=== PATIENT | female | born 1970 | race Caucasian/White ===

== ENCOUNTER → 2020-12-07 10:40 | Outpatient (BNVA) | payer OTHER, SELFPAY | PROVIDERS: Visit Provider Nurse Practitioner | DX: K21.9 Gastro-esophageal reflux disease without esophagitis (principal); K58.2 Mixed irritable bowel syndrome; R14.0 Abdominal distension (gaseous) | CPT/HCPCS: Q3014 ==

== ENCOUNTER → 2021-04-12 09:55 | Outpatient (BNVA) | payer OTHER, SELFPAY | DX: N39.41 Urge incontinence (principal); K58.2 Mixed irritable bowel syndrome; K21.9 Gastro-esophageal reflux disease without esophagitis | CPT/HCPCS: 51798; 99212 ==

== ENCOUNTER 2021-04-29 09:32 | Outpatient (REF) | payer OTHER, SELFPAY ==
--- NOTE | ~2021-04-29 | US_ITS ---
EXAMINATION: US RETROPERITONEAL LIMITED (RENAL ONLY) CLINICAL INFORMATION: Verge incontinence. COMPARISON: Previous renal ultrasound most recent October [address] of the abdomen and pelvis most recent April 2019 TECHNIQUE: Doppler color and grayscale evaluation of the kidneys and left renal artery. FINDINGS: RIGHT KIDNEY: Right kidney appears atrophic. Previously identified right hydronephrosis is no longer seen. Right kidney appears decreased in size compared to previous exams. Renal Doppler evaluation on the right was not performed. LEFT KIDNEY: 10.9 x 6.1 x 5.4 cm (SAG x AP x TRV). The kidney is normal in size, contour, and echogenicity. Renal cortical thickness is normal. There is a 10 x 12 x 7 mm cyst in the midpole. No calculi. No hydronephrosis. The visualized mid abdominal aorta is normal in caliber. Velocity is 77 cm/s. Left renal artery is patent. Left renal artery peak systolic velocities measure 163 cm/s proximally, 160 cm/s the midportion and 132 cm/s distally. The left renal artery to aorta ratio is normal measuring 2.1. Resistive indices in the segmental renal arteries in the left kidney are normal measuring 0.6-0.7. Left renal vein is patent. Gallstone is noted. US/US renal BI IMPRESSION: Atrophic-appearing right kidney. Small left renal cyst otherwise normal left kidney. No evidence of left renal artery stenosis.
--- NOTE | ~2021-04-29 | US_ITS ---
EXAMINATION: US RETROPERITONEAL LIMITED (RENAL ONLY) CLINICAL INFORMATION: Verge incontinence. COMPARISON: Previous renal ultrasound most recent October [address] of the abdomen and pelvis most recent April 2019 TECHNIQUE: Doppler color and grayscale evaluation of the kidneys and left renal artery. FINDINGS: RIGHT KIDNEY: Right kidney appears atrophic. Previously identified right hydronephrosis is no longer seen. Right kidney appears decreased in size compared to previous exams. Renal Doppler evaluation on the right was not performed. LEFT KIDNEY: 10.9 x 6.1 x 5.4 cm (SAG x AP x TRV). The kidney is normal in size, contour, and echogenicity. Renal cortical thickness is normal. There is a 10 x 12 x 7 mm cyst in the midpole. No calculi. No hydronephrosis. The visualized mid abdominal aorta is normal in caliber. Velocity is 77 cm/s. Left renal artery is patent. Left renal artery peak systolic velocities measure 163 cm/s proximally, 160 cm/s the midportion and 132 cm/s distally. The left renal artery to aorta ratio is normal measuring 2.1. Resistive indices in the segmental renal arteries in the left kidney are normal measuring 0.6-0.7. Left renal vein is patent. Gallstone is noted. US/US renal doppler IMPRESSION: Atrophic-appearing right kidney. Small left renal cyst otherwise normal left kidney. No evidence of left renal artery stenosis.
== END 2021-04-29 09:33 | disposition home or self-care (01) ==
LOC: HO.US 09:32
PROVIDERS: Visit Provider Urology
DX: N13.4 Hydroureter (principal); N39.41 Urge incontinence
CPT/HCPCS: 76775; 93975

== ENCOUNTER → 2021-05-07 15:11 | Outpatient (BNVA) | payer OTHER, SELFPAY | PROVIDERS: PCP Nurse Practitioner Family; Visit Provider Nurse Practitioner | DX: K58.2 Mixed irritable bowel syndrome (principal); K21.9 Gastro-esophageal reflux disease without esophagitis; R14.0 Abdominal distension (gaseous) | CPT/HCPCS: Q3014 ==

== ENCOUNTER → 2021-11-30 09:28 | Outpatient (BNVA) | payer OTHER, SELFPAY | PROVIDERS: PCP Nurse Practitioner Family | DX: Z13.89 Encounter for screening for other disorder (principal) | CPT/HCPCS: Q3014 ==

== ENCOUNTER 2022-02-11 10:19 | Outpatient (REF) | payer OTHER, SELFPAY ==
[2022-02-11 11:35] LABS: MANUAL DIFF FLAG NO
[2022-02-11 12:11] LABS: Basophils Percent Auto 0.6 % (0-2); Eosinophils Percent Auto 0.6 % (0-4); Hematocrit 43.1 % (37.0-47.0); Hemoglobin 13.9 g/dl (12.0-16.0); Imm Gran Abs Auto 0.03 X10*3/uL (0.00-0.03); Imm Gran Pct Auto 0.4 % (0.0-0.4); Lymphocytes Absolute Auto 1.9 X10*3/uL (1.2-4.9); Lymphocytes Percent Auto 28.3 % (20-40); Mean Corpuscular HGB Conc 32.3 g/dl (31.0-35.0); Mean Corpuscular Hemoglobin 27.7 pg (27.0-33.0); Mean Platelet Volume 13.1 fL (9.4-12.3); Monocytes Absolute Auto 0.5 X10*3/uL (0.1-1.2); Monocytes Percent Auto 7.2 % (2-11); Neutrophils Absolute Auto 4.2 x10*3/uL (2.0-8.3); Neutrophils Percent Auto 62.9 % (45-73); Platelet Count 232 X10*3/uL (160-400); Red Blood Count 5.01 X10*6/uL (4.20-5.50); Red Cell Distribution Width 15.5 % (11.0-16.0); White Blood Count 6.7 X10*3/uL (4.8-10.8)
[2022-02-11 12:41] LABS: Alanine Aminotransferase 17 U/L (0-31); Alkaline Phosphatase 98 U/L (39-117); Anion Gap 15 (12-20); Aspartate Amino Transferase 14 U/L (5-31); Bilirubin Total 0.4 mg/dL (0.0-1.0); Blood Urea Nitrogen 7 mg/dL (9-16); Calcium 9.4 mg/dL (8.4-10.2); Carbon Dioxide 21 mmol/L (22-29); Chloride 111 mmol/L (96-108); Estimated Glomerular Filt Rate 46; Glucose Random 88 mg/dL (60-115); Potassium 3.8 mmol/L (3.3-5.1); Sodium 143 mmol/L (135-145); Total Protein 6.6 g/dL (6.5-8.0)
== END 2022-02-11 10:20 | disposition home or self-care (01) ==
LOC: HO.LAB 10:19
PROVIDERS: PCP Nurse Practitioner Family; Referring Provider Nurse Practitioner Family; Visit Provider Nurse Practitioner
DX: Z01.818 Encounter for other preprocedural examination (principal); K58.2 Mixed irritable bowel syndrome; K21.9 Gastro-esophageal reflux disease without esophagitis; R14.0 Abdominal distension (gaseous)
CPT/HCPCS: 36415; 80053; 85025; 99212

== ENCOUNTER 2022-10-28 10:09 | Outpatient (REF) | payer OTHER, SELFPAY | END 2022-10-28 10:10 | disposition home or self-care (01) | LOC: HO.HMGCX 10:09 | PROVIDERS: PCP Nurse Practitioner Family | DX: N13.4 Hydroureter (principal) | CPT/HCPCS: 76775 ==

== ENCOUNTER → 2022-12-06 10:48 | Outpatient (BNVA) | payer OTHER, SELFPAY | PROVIDERS: PCP Nurse Practitioner Family; Visit Provider Nurse Practitioner Family | DX: N30.10 Interstitial cystitis (chronic) without hematuria (principal); N13.4 Hydroureter; R39.15 Urgency of urination | CPT/HCPCS: 51798; 99212 ==

== ENCOUNTER 2023-02-10 08:08 | Day surgery (SDC) | payer OTHER, SELFPAY ==
[2023-02-10 08:21] VITALS: BP 133/88; PULSE 82; RESP 18; TEMP 36.7; O2SAT 99; BMI 41.9
[2023-02-10] MEDS: Lactated Ringers 1,000 ML 50 ML IVCONT (08:56)
--- NOTE | 2023-02-10 09:21 | P.CONAN_ITS ---
[facility] Active Problems Active Problems: All Active Problems (Updated 02/07/23 @ 10:32 by Renee Bates, RN) Abdominal bloating (Acute) Urge incontinence of urine (Acute) GERD (gastroesophageal reflux disease) (Acute) Irritable bowel syndrome with both constipation and diarrhea (Acute) Hydroureter (Acute) Colon cancer screening (Acute) Urinary urgency (Acute) Recurrent urinary tract infection (Acute) Interstitial cystitis (Acute) Past Medical History Medical History (Updated 02/07/23 @ 10:32 by Renee Bates RN) Anxiety and depression GERD (gastroesophageal reflux disease) Hx of degenerative disc disease IBS (irritable bowel syndrome) Interstitial cystitis Migraine GASTON on CPAP PTSD (post-traumatic stress disorder) Recurrent urinary tract infection Urgency incontinence UTI (urinary tract infection) Family History Family History Mother High cholesterol Sister High cholesterol Paternal Aunt Diabetes Paternal Grandmother Bone cancer Paternal Grandfather Cancer Family/Other FH: juvenile onset diabetes mellitus Family history of problems with anesthesia: No Surgical History Surgical History (Updated 02/07/23 @ 10:33 by Renee Bates RN) History of cystoscopy History of esophagogastroduodenoscopy (EGD) History of surgery Hx of colonoscopy History of Problems with Anesthesia: No Social History Social History Alcohol intake: current Alcohol intake frequency: does not drink Patient Tobacco Use Status: Never used Tobacco Use of substances other than those prescribed or required for medical reasons: No Are you DNR?: No Advance Directives: No Advance Directives Information Provided: Yes Meds Allergies Allergy/AdvReac Type Severity Reaction Status Date / Time aspirin [ASPIRIN] Allergy Intermediate VOMITING Verified 02/07/23 10:15 Penicillins [PENICILLINS] AdvReac Intermediate SHAKINESS Verified 02/07/23 10:15 lactose [LACTOSE] AdvReac Unknown SEVERE Verified 02/07/23 10:15 DIARRHEA From KEFLEX AdvReac Intermediate SHAKINESS Uncoded 02/07/23 10:15 Active Medications: Current Medications Lactated Ringer's (Lr) 1,000 mls @ 50 mls/hr IVCONT .Q20H LILY Last Admin: 02/10/23 08:56 Dose: 50 mls/hr Home Medications Medication Instructions Recorded Confirmed Last Taken Type azelastine 137 mcg (0.1 %) nasal intranasal 05/07/21 12/06/22 Unknown History spray aerosol bupropion HCl 200 mg tablet,12 hr 200 mg PO BID 05/07/21 02/07/23 02/10/23 History sustained-release cetirizine 10 mg tablet 10 mg PO DAILY 05/07/21 02/07/23 Unknown History cholecalciferol (vitamin D3) 25 25 mcg PO DAILY 05/07/21 02/07/23 Unknown History mcg (1,000 unit) tablet duloxetine 60 mg capsule,delayed mg PO 05/07/21 12/06/22 02/10/23 History release ferrous sulfate 325 mg (65 mg 0 mg PO 05/07/21 12/06/22 02/03/23 History iron) tablet losartan 25 mg tablet 25 mg PO DAILY 05/07/21 02/07/23 02/10/23 History montelukast 10 mg tablet 10 mg PO DAILY 05/07/21 02/07/23 Unknown History pregabalin 75 mg capsule 75 mg PO BID 05/07/21 02/07/23 Unknown History zonisamide 50 mg capsule 0 mg PO 05/07/21 12/06/22 Unknown History diphenhydramine HCl 25 mg tablet 25 mg PO BEDTIME 11/30/21 02/07/23 Unknown History (Banophen) medroxyprogesterone 150 mg/mL mg IM 11/30/21 12/06/22 Unknown History intramuscular suspension triamcinolone acetonide 55 mcg intranasal 11/30/21 12/06/22 Unknown History nasal spray aerosol (Nasacort) Exam Exam Date and Time: February 10, 2023920 Height,Weight and Vital Signs: Height 5 ft 6 in Weight 117.934 kg Last Vital Signs Temp 98.1 F 02/10/23 08:21 Pulse 82 02/10/23 08:21 Resp 18 02/10/23 08:21 BP 133/88 02/10/23 08:21 Pulse Ox 99 02/10/23 08:21 O2 Del Method Room Air 02/10/23 08:21 Airway Mallampati Class: II (edentulous) TM Dist: >3cm Neck ROM: Full Heart: rrr Lungs: cta Assessment and Plan Assessment Anesthesia Assessment: Anesthesia Plan Discussed and Chart Reviewed Final Anesthetic Review Family History of Problems with Anesthesia: No History of Problems with Anesthesia: No NPO: Yes ASA Class: III Final Preanesthetic Review: No Changes in Pt Med Stat, Meds/Allgs Chart Reviewed and Consent Obtained/Reviewed Patient Risk: Intermediate Procedure Risk: Intermediate Anesthetic Plan Anesthetic Plan: MAC: Disposition: Standard PACU
--- NOTE | 2023-02-10 09:42 | P.HPSUR_ITS ---
Pre-Procedural Eval Section A Date of Service: 02/10/23 The patient is an INPATIENT: No The History & Physical has been completed within 30 days and I have reviewed it.: No Section B Chief Complaint: screening Details of Present Illness: Colon cancer screening Relevant Family History (Specify if Yes): No Relevant Social History: None Present Medications: see Short Stay [facility] assessment Medical History: Significant History (GERD (gastroesophageal reflux disease) Interstitial cystitis Urgency incontinence UTI (urinary tract infection)) History of Previous Operations: Relevant previous surgery/procedure and date(s) (History of esophagogastroduodenoscopy (EGD) History of surgery Hx of colonoscopy) Allergies: Allergies Allergy/AdvReac Type Severity Reaction Status Date / Time aspirin [ASPIRIN] Allergy Intermediate VOMITING Verified 02/07/23 10:15 Penicillins [PENICILLINS] AdvReac Intermediate SHAKINESS Verified 02/07/23 10:15 lactose [LACTOSE] AdvReac Unknown SEVERE Verified 02/07/23 10:15 DIARRHEA From KEFLEX AdvReac Intermediate SHAKINESS Uncoded 02/07/23 10:15 Review of Systems Sugical H&P ROS: Negative: Constitution, Cardiovascular, Respiratory and Gas trointestinal Exam Surgical H&P Exam: Normal: Heart, Normal: Lungs, Normal: Extremities and Normal: Abdomen Plan Diagnosis/Plan: Unchanged I have reviewed the history and physical and performed a pertinent physical examination on my patient. No changes have occurred unless specified. Time Spent With Patient Time: Total time managing care of this patient today ____ minutes.
--- NOTE | 2023-02-10 09:48 | W.PM.OPN ---
Operative Note Operative Note Date of Service: 02/10/23 Narrative: COLONOSCOPY TILL CECUM WITH BIOPSIES, SNARE POLYPECTOMY, SUBMUCOSAL INJECTION AND HEMOCLIP PLACEMENT Pre-op diagnosis: Colon cancer screening, IBS with diarrhea and constipation Post-op diagnosis:? Colon polyps, diverticulosis Endoscopist:? Leelee Haywood MD Anesthesia:?MAC Consent: Indications for the procedure and potential complications of bleeding, perforation, reaction to medications and missed diagnosis were discussed with the patient and informed consent was obtained. Instrument: Olympus PCF H 190 L variable stiffness pediatric colonoscope Monitoring: Vital signs and clinical assessment, intermittent blood pressure monitoring, continuous EKG monitoring, Pulse oximetry and Carbon Dioxide monitoring were done throughout the procedure. Please see anesthesia flowsheet. Colon withdrawl time was 44 minutes. Procedure: The patient was placed in the left lateral decubitis position and pre-procedure medications were administered. After a digital rectal examination of the ano-rectum, the video colonoscope was inserted into the rectum and advanced through the colon to the cecum. The colonoscope was slowly withdrawn in a retrograde panoramic fashion and the colon mucosa was carefully examined including a retroflexed view of the rectum. Findings and interventions are described below. Procedure Difficulty: Colon was long and tortuous and there was spasm and some loop formation Findings: Terminal Ileum: Not evaluated Cecum: Normal Ascending Colon: Two 12 to 15 mm sessile polyp in the mid to distal ascending colon. Polyp was removed with a hot snare Transverse Colon: Three 15 to 10 mm sessile polyps at 90 cms - removed with a hot snare. A 2.5 x 3 cms flat polyp at 85 cms raised with 3 cc of Eleview and removed piecemeal with a hot snare. Polypectomy site was marked with Michelle ink Eight 15 to 25 mm sessile polyps in the TC at 80 cms - removed with hot snare A few additional 8 t0 15 mm sessile polyps - not removed due to excessive length of the procedure. Descending Colon: A few 8 to 15 mm sessile polyps - not removed due to excessive length of the procedure. Sigmoid Colon: Moderate diverticulosis Rectum: Normal Ano-rectum: Normal Colon preparation: Good after copious irrigation Impression and Post Procedure Diagnosis: Colonoscopy Findings: Fourteen medium to large sized polyps removed A few 8 to 15 mm sessile polyps in the transverse and left - not removed due to excessive length of the procedure and worsening spasm in the colon. Random biopsies were obtained from the right colon to check for microscopic colitis. Moderate diverticulosis seen in the sigmoid colon Plan: Await pathology results Patient has an appointment on 02/28/23 in the GI Clinic with Kim Rosas NP. Consider genetic testing since pt had 18 to 20 polyps (14 polyps removed today) Repeat Colonoscopy interval based on path results - in 6 months for removal of remaining polyps. (Needs dulcolax 2 tablets daily starting 2 days before colon appt for prep and adult colonoscopy future colonoscopies). Above findings were reviewed with the patient and colon polyps and diverticulosis handouts were given in the discharge area PATHOLOGY: A) Polyp Ascending Colon B) BX Random Right Colon (R/O Microscopic Colitis) C) Polyp Transverse Colon D) Polyp Transverse Colon 85cm E) Polyp Colon 80cm
[2023-02-10 11:02] VITALS: BP 88/59; PULSE 82; RESP 16; TEMP 36.6; O2SAT 100
[2023-02-10 11:17] VITALS: BP 116/54; PULSE 87; RESP 17; O2SAT 100
[2023-02-10 11:32] VITALS: BP 110/77; PULSE 84; RESP 16; TEMP 37.1; O2SAT 99
== END 2023-02-10 12:00 | disposition home or self-care (01) ==
PROVIDERS: PCP Nurse Practitioner Family; Visit Provider Internal Medicine Gastroenterology
PROC: 0DJD8ZZ Inspection of Lower Intestinal Tract, Via Natural or Artificial Opening Endoscopic (ICD-10-PCS; CPT 45378; principal; 2023-02-10 09:20)
DX: Z12.11 Encounter for screening for malignant neoplasm of colon (principal); D12.2 Benign neoplasm of ascending colon; D12.3 Benign neoplasm of transverse colon; D12.4 Benign neoplasm of descending colon; K57.30 Diverticulosis of large intestine without perforation or abscess without bleeding; K58.2 Mixed irritable bowel syndrome; K21.9 Gastro-esophageal reflux disease without esophagitis; R14.0 Abdominal distension (gaseous); Z79.899 Other long term (current) drug therapy; Z88.0 Allergy status to penicillin
CPT/HCPCS: 45385; 45380; 45381; 88305

== ENCOUNTER → 2023-02-28 10:37 | Outpatient (BNVA) | payer OTHER, SELFPAY | PROVIDERS: PCP Nurse Practitioner Family; Visit Provider Nurse Practitioner | DX: K58.2 Mixed irritable bowel syndrome (principal); K21.9 Gastro-esophageal reflux disease without esophagitis; D12.6 Benign neoplasm of colon, unspecified; N30.10 Interstitial cystitis (chronic) without hematuria | CPT/HCPCS: 99212 ==

== ENCOUNTER → 2023-03-02 15:15 | Outpatient (BNVA) | payer OTHER, SELFPAY | PROVIDERS: PCP Nurse Practitioner Family; Visit Provider Nurse Practitioner Family | DX: R39.15 Urgency of urination (principal); N13.4 Hydroureter; N39.0 Urinary tract infection, site not specified; N30.10 Interstitial cystitis (chronic) without hematuria | CPT/HCPCS: 51798; 99212 ==

== ENCOUNTER 2023-08-11 09:14 | Day surgery (SDC) | payer OTHER, SELFPAY ==
--- NOTE | 2023-08-11 09:38 | MHC.SHP ---
Pre-Procedural Eval Section A Date of Service: 08/11/23 The patient is an INPATIENT: No The History & Physical has been completed within 30 days and I have reviewed it.: No Section B Chief Complaint: surveillance for multiple colon polyps Relevant Family History (Specify if Yes): No Relevant Social History: None Present Medications: see Short Stay [facility] assessment Medical History: Significant History (GERD (gastroesophageal reflux disease) Hx of degenerative disc disease IBS (irritable bowel syndrome) Interstitial cystitis Migraine GASTON on CPAP PTSD (post-traumatic stress disorder) Recurrent urinary tract infection Urgency incontinence UTI (urinary tract infection)) History of Previous Operations: Relevant previous surgery/procedure and date(s) (History of cystoscopy History of esophagogastroduodenoscopy (EGD) History of surgery Hx of colonoscopy) Allergies: Allergies Allergy/AdvReac Type Severity Reaction Status Date / Time aspirin [ASPIRIN] Allergy Intermediate VOMITING Verified 03/02/23 15:55 Penicillins [PENICILLINS] AdvReac Intermediate SHAKINESS Verified 03/02/23 15:55 lactose [LACTOSE] AdvReac Unknown SEVERE Verified 03/02/23 15:55 DIARRHEA From KEFLEX AdvReac Intermediate SHAKINESS Uncoded 03/02/23 15:55 Review of Systems Sugical H&P ROS: Negative: Constitution, Cardiovascular, Respiratory and Gastrointestinal Exam Surgical H&P Exam: Normal: Heart, Normal: Lungs, Normal: Extremities and Normal: Abdomen Plan Diagnosis/Plan: Unchanged I have reviewed the history and physical and performed a pertinent physical examination on my patient. No changes have occurred unless specified. Time Spent With Patient Time: Total time managing care of this patient today ____ minutes.
[2023-08-11 09:48] VITALS: BP 131/79; PULSE 73; RESP 18; TEMP 36.2; O2SAT 98; BMI 42.0
--- NOTE | 2023-08-11 09:52 | HO.ANESPROP2 ---
[facility] Active Problems Active Problems: All Active Problems (Updated 02/28/23 @ 15:05 by COMPA Huntley) Tubular adenoma of colon (Acute) Abdominal bloating (Acute) Urge incontinence of urine (Acute) GERD (gastroesophageal reflux disease) (Acute) Irritable bowel syndrome with both constipation and diarrhea (Acute) Hydroureter (Acute) Colon cancer screening (Acute) Urinary urgency (Acute) Recurrent urinary tract infection (Acute) Interstitial cystitis (Acute) Past Medical History Medical History Anxiety and depression GERD (gastroesophageal reflux disease) Hx of degenerative disc disease IBS (irritable bowel syndrome) Interstitial cystitis Migraine GASTON on CPAP PTSD (post-traumatic stress disorder) Recurrent urinary tract infection Urgency incontinence UTI (urinary tract infection) Family History Family History Mother High cholesterol Sister High cholesterol Paternal Aunt Diabetes Paternal Grandmother Bone cancer Paternal Grandfather Cancer Family/Other FH: juvenile onset diabetes mellitus Family history of problems with anesthesia: No Surgical History Surgical History History of cystoscopy History of esophagogastroduodenoscopy (EGD) History of surgery Hx of colonoscopy History of Problems with Anesthesia: No Social History Social History Alcohol intake: current Alcohol intake frequency: does not drink Patient Tobacco Use Status: Never used Tobacco Use of substances other than those prescribed or required for medical reasons: No Are you DNR?: No Advance Directives: No Advance Directives Information Provided: Yes Meds Allergies Allergy/AdvReac Type Severity Reaction Status Date / Time aspirin [ASPIRIN] Allergy Intermediate VOMITING Verified 03/02/23 15:55 Penicillins [PENICILLINS] AdvReac Intermediate SHAKINESS Verified 03/02/23 15:55 lactose [LACTOSE] AdvReac Unknown SEVERE Verified 03/02/23 15:55 DIARRHEA From KEFLEX AdvReac Intermediate SHAKINESS Uncoded 03/02/23 15:55 Active Medications: Current Medications Lactated Ringer's (Lr) 1,000 mls @ 50 mls/hr IVCONT .Q20H LILY Home Medications Medication Instructions Recorded Confirmed Last Taken Type azelastine 137 mcg (0.1 %) nasal intranasal 07/02/21 04/27/23 Unknown History spray aerosol bupropion HCl 200 mg tablet,12 hr 200 mg PO BID 05/07/21 03/02/23 02/10/23 History sustained-release cetirizine 10 mg tablet 10 mg PO DAILY 05/07/21 03/02/23 08/11/23 History cholecalciferol (vitamin D3) 25 25 mcg PO DAILY 05/07/21 03/02/23 Unknown History mcg (1,000 unit) tablet duloxetine 60 mg capsule,delayed mg PO 05/07/21 03/02/23 08/11/23 History release ferrous sulfate 325 mg (65 mg 0 mg PO 05/07/21 03/02/23 02/03/23 History iron) tablet losartan 25 mg tablet 25 mg PO DAILY 05/07/21 03/02/23 02/10/23 History montelukast 10 mg tablet 10 mg PO DAILY 05/07/21 03/02/23 08/11/23 History pregabalin 75 mg capsule 75 mg PO BID 05/07/21 03/02/23 Unknown History zonisamide 50 mg capsule 0 mg PO 05/07/21 03/02/23 Unknown History diphenhydramine HCl 25 mg tablet 25 mg PO BEDTIME 11/30/21 03/02/23 Unknown History (Banophen) medroxyprogesterone 150 mg/mL mg IM 11/30/21 03/02/23 Unknown History intramuscular suspension triamcinolone acetonide 55 mcg intranasal 11/30/21 03/02/23 Unknown History nasal spray aerosol (Nasacort) bupropion HCl 300 mg 24 hr tablet, 300 mg PO DAILY 03/02/23 03/02/23 08/11/23 History extended release galcanezumab-gnlm 120 mg/mL mg subcut 03/02/23 03/02/23 Unknown History subcutaneous pen injector (Emgality Pen) sulfamethoxazole 400 1 tab PO DAILY 03/02/23 03/02/23 Unknown History mg-trimethoprim 80 mg tablet Exam Exam Date and Time: August 11, [id number] Height,Weight and Vital Signs: Height 5 ft 6 in Weight 117.934 kg Last Vital Signs Temp 97.1 F 08/11/23 09:48 Pulse 73 08/11/23 09:48 Resp 18 08/11/23 09:48 BP 131/79 08/11/23 09:48 Pulse Ox 98 08/11/23 09:48 O2 Del Method Room Air 08/11/23 09:48 Airway Mallampati Class: II (edentulous) TM Dist: >3cm Neck ROM: Full Heart: rrr Lungs: cta Assessment and Plan Assessment Anesthesia Assessment: Anesthesia Plan Discussed and Chart Reviewed Final Anesthetic Review Family History of Problems with Anesthesia: No History of Problems with Anesthesia: No NPO: Yes ASA Class: III Final Preanesthetic Review: No Changes in Pt Med Stat, Meds/Allgs Chart Reviewed and Consent Obtained/Reviewed Patient Risk: Intermediate Procedure Risk: Intermediate Anesthetic Plan Anesthetic Plan: MAC: Disposition: Standard PACU
--- NOTE | 2023-08-11 10:24 | W.PM.OPN ---
Operative Note Operative Note Date of Service: 08/11/23 Narrative: COLONOSCOPY TILL CECUM WITH BIOPSIES, SNARE POLYPECTOMY, SUBMUCOSAL INJECTION AND HEMOCLIP PLACEMENT Pre-op diagnosis: SURVEILLANCE FOR MULTIPLE COLON POLYPS Post-op diagnosis:? colon polyps, diverticulosis Endoscopist:? Leelee Haywood MD Anesthesia:?MAC Consent: Indications for the procedure and potential complications of bleeding, perforation, reaction to medications and missed diagnosis were discussed with the patient and informed consent was obtained. Instrument: Olympus CF H 190 L variable stiffness adult colonoscope Monitoring: Vital signs and clinical assessment, intermittent blood pressure monitoring, continuous EKG monitoring, Pulse oximetry and Carbon Dioxide monitoring were done throughout the procedure. Please see anesthesia flowsheet. Colon withdrawl time was 45 minutes. Procedure: The patient was placed in the left lateral decubitis position and pre-procedure medications were administered. After a digital rectal examination of the ano-rectum, the video colonoscope was inserted into the rectum and advanced through the colon to the cecum. The colonoscope was slowly withdrawn in a retrograde panoramic fashion and the colon mucosa was carefully examined including a retroflexed view of the rectum. Findings and interventions are described below. Procedure Difficulty: Without difficulty Findings: Terminal Ileum: Not evaluated Cecum: A 2 x 2.5 cms flat polyp - raised with 4 cc of Eleview and removed with a hot snare. Polypectomy site was closed with 1 hemoclip Ascending Colon: A 10-12 mm sessile polyp in the distal AC - removed with hot snare. Five 8 to 12 mm sessile polyps at site of past polypectomy - removed with a hot snare. Transverse Colon: Seven 1 to 2 cms sessile polyp - removed with a hot snare Descending Colon: Scattered 5-10 mm ulcers in the left colon - random biopsies were obtained Sigmoid Colon: Scattered 5-10 mm ulcers in the left colon - random biopsies were obtained Moderate diverticulosis Rectum: Normal Ano-rectum: Normal Colon preparation: Good after some irrigation Impression and Post Procedure Diagnosis: Colonoscopy Findings: Fourteen medium to large sized polyps removed Moderate diverticulosis seen in the sigmoid colon Scattered 5-10 mm ulcers in the left colon - random biopsies were obtained from right and left colon Plan: Await pathology results Patient has an appointment on 08/30/23 in the GI Clinic with Kim Rosas NP. Genetic testing since patient had 28 polyps removed over a span of 6 months Repeat Colonoscopy interval based on path results - in 1 year if polyps are adenomatous and due to a hx of multiple colon polyps. (adult colonoscope for future colonoscopies). Above findings were reviewed with the patient and colon polyps handout was given in the discharge area
[2023-08-11 11:26] VITALS: BP 91/50; PULSE 77; RESP 16; TEMP 36.2; O2SAT 96
[2023-08-11 11:41] VITALS: BP 107/62; PULSE 71; RESP 14; O2SAT 98
[2023-08-11 11:56] VITALS: BP 109/68; PULSE 73; RESP 16; TEMP 36.3; O2SAT 100
== END 2023-08-11 12:26 ==
PROVIDERS: PCP Nurse Practitioner Family; Visit Provider Internal Medicine Gastroenterology
PROC: 0DJD8ZZ Inspection of Lower Intestinal Tract, Via Natural or Artificial Opening Endoscopic (ICD-10-PCS; CPT 45378; principal; 2023-08-11 10:50)
DX: Z12.11 Encounter for screening for malignant neoplasm of colon (principal); D12.0 Benign neoplasm of cecum; D12.2 Benign neoplasm of ascending colon; D12.3 Benign neoplasm of transverse colon; K52.9 Noninfective gastroenteritis and colitis, unspecified; K57.30 Diverticulosis of large intestine without perforation or abscess without bleeding; K64.8 Other hemorrhoids; K21.9 Gastro-esophageal reflux disease without esophagitis; N30.10 Interstitial cystitis (chronic) without hematuria; N39.41 Urge incontinence; G43.909 Migraine, unspecified, not intractable, without status migrainosus; G47.33 Obstructive sleep apnea (adult) (pediatric); Z79.899 Other long term (current) drug therapy; Z99.89 Dependence on other enabling machines and devices; Z88.0 Allergy status to penicillin; Z88.1 Allergy status to other antibiotic agents; Z88.8 Allergy status to other drugs, medicaments and biological substances
CPT/HCPCS: 45385; 45380; 45381; 88305

== ENCOUNTER → 2023-08-11 09:14 | Outpatient (BNV) | payer OTHER, SELFPAY | PROVIDERS: PCP Nurse Practitioner Family; Visit Provider Internal Medicine Gastroenterology | DX: Z12.11 Encounter for screening for malignant neoplasm of colon (principal); Z86.010 Personal history of colon polyps; K57.30 Diverticulosis of large intestine without perforation or abscess without bleeding; D12.0 Benign neoplasm of cecum; D12.2 Benign neoplasm of ascending colon; D12.3 Benign neoplasm of transverse colon; K63.3 Ulcer of intestine | CPT/HCPCS: 45380; 45385 ==

== ENCOUNTER 2024-06-18 12:29 | Outpatient (REF) | payer OTHER, SELFPAY ==
[2024-06-18 13:44] LABS: MANUAL DIFF FLAG NO
[2024-06-18 14:21] LABS: Basophils Absolute Auto 0.1 X10*3/uL (0.0-0.2); Basophils Percent Auto 0.7 % (0-2); Eosinophils Percent Auto 0.4 % (0-4); Hematocrit 44.6 % (37.0-47.0); Hemoglobin 14.5 g/dl (12.0-16.0); Imm Gran Abs Auto 0.03 X10*3/uL (0.00-0.03); Imm Gran Pct Auto 0.4 % (0.0-0.4); Lymphocytes Absolute Auto 2.1 X10*3/uL (1.2-4.9); Lymphocytes Percent Auto 27.3 % (20-40); Mean Corpuscular HGB Conc 32.5 g/dl (31.0-35.0); Mean Corpuscular Hemoglobin 28.5 pg (27.0-33.0); Mean Corpuscular Volume 87.8 fL (80.0-98.0); Monocytes Absolute Auto 0.6 X10*3/uL (0.1-1.2); Monocytes Percent Auto 7.5 % (2-11); Neutrophils Absolute Auto 4.9 x10*3/uL (2.0-8.3); Neutrophils Percent Auto 63.7 % (45-73); Platelet Count 216 X10*3/uL (160-400); Red Blood Count 5.08 X10*6/uL (4.20-5.50); Red Cell Distribution Width 13.2 % (11.0-16.0); White Blood Count 7.6 X10*3/uL (4.8-10.8)
[2024-06-18 14:50] LABS: Alanine Aminotransferase 20 U/L (0-31); Albumin Level 4.1 g/dL (3.5-5.0); Alkaline Phosphatase 106 U/L (39-117); Anion Gap 12 (12-20); Aspartate Amino Transferase 17 U/L (5-31); Bilirubin Total 0.4 mg/dL (0.0-1.0); Blood Urea Nitrogen 12 mg/dL (9-16); C Reactive Protein 1.53 mg/dL (< or = 0.50); Calcium 9.6 mg/dL (8.4-10.2); Carbon Dioxide 24 mmol/L (22-29); Chloride 109 mmol/L (96-108); Estimated Glomerular Filt Rate 38; Glucose Random 69 mg/dL (60-115); Sodium 141 mmol/L (135-145); Total Protein 6.9 g/dL (6.5-8.0)
== END 2024-06-18 12:30 | disposition home or self-care (01) ==
LOC: HO.LAB 12:29
PROVIDERS: PCP Nurse Practitioner Family; Visit Provider Nurse Practitioner
DX: D12.6 Benign neoplasm of colon, unspecified (principal); K52.9 Noninfective gastroenteritis and colitis, unspecified; R79.82 Elevated C-reactive protein (CRP); Z01.812 Encounter for preprocedural laboratory examination
CPT/HCPCS: 36415; 80053; 81405; 81479; 82397; 83520; 85025; 86003; 86140; 88346; 88350; 99212

== ENCOUNTER 2024-06-18 12:29 | Outpatient (AMB) | payer OTHER, SELFPAY ==
--- NOTE | 2024-06-18 12:30 | A.OFFVIS_ITS ---
Intake Visit Reasons: Constipation Intake Note: Patient follow up for Constipation. 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 Accompanied by: Self / Same As Patient Allergies aspirin [ASPIRIN] Allergy (Intermediate, Verified 06/18/24 12:36) VOMITING Penicillins [PENICILLINS] Adverse Reaction (Intermediate, Verified 06/18/24 12: 36) SHAKINESS lactose [LACTOSE] Adverse Reaction (Unknown, Verified 06/18/24 12:36) SEVERE DIARRHEA From KEFLEX Adverse Reaction (Intermediate, Uncoded 03/02/23 15:55) SHAKINESS HPI HPI Constipation: Details: Assessment & Plan (1) Tubular adenoma of colon: Comment: 02/2023 scope= multiple large polyps repeat in 6 months Code(s): D12.6 - Benign neoplasm of colon, unspecified Plan: I explained the findings and since she had multiple polyps that were rather large we will need to repeat the procedure in 6 months. She had some fatigue after the procedures. She also had some irritation from the IV in her hand. Otherwise the procedure was well tolerated. The results were explained and the patient is agreeable to the follow-up interval as stated. The bowel pattern has returned to normal. Education was provided to tell any 1st degree relatives about their findings to be sure that they are screened by age 45. Educated that they will be put on a recall list when it is time for their repeat scope but should they move out of state or away from the hospital they will need to remember along with their primary to repeat the procedure in a timely fashion to avoid any adverse complications. She is aware of the need for the six-month follow-up and is agreeable. I have put in note through to our schedulers to try to facilitate this. She continues on her dicyclomine and simethicone with good relief from her irritable bowel and her GERD is well controlled on protonix bid. She is agreeable to the 6 mos follow up. (2) GERD (gastroesophageal reflux disease): Code(s): K21.9 - Gastro-esophageal reflux disease without esophagitis (3) Irritable bowel syndrome with both constipation and diarrhea: Code(s): K58.2 - Mixed irritable bowel syndrome (4) Interstitial cystitis: Code(s): N30.10 - Interstitial cystitis (chronic) without hematuria Medications: New peg 3350-electrolytes 236-22.74-6.74 -5.86 gram (Golytely) until fecal effluent is clear; do not exceed a total volume of 2,000 mL 240 mL PO Q10M 1 day 4,000 mL 0RF Z12.11 - Encounter for screening for malignant neoplasm of colon Refilled dicyclomine 20 mg PO QID 112 tabs 6RF K58.2 - Mixed irritable bowel syndrome pantoprazole 40 mg PO BID 56 tabs 6RF K21.9 - Gastro-esophageal reflux disease without esophagitis CURRENT LABS: none in our system since COLONOSCOPY 08/2023 Findings: Terminal Ileum: Not evaluated Cecum: A 2 x 2.5 cms flat polyp - raised with 4 cc of Ele[place] and removed with a hot snare. Polypectomy site was closed with 1 hemoclip Ascending Colon: A 10-12 mm sessile polyp in the distal AC - removed with hot snare. Five 8 to 12 mm sessile polyps at site of past polypectomy - removed with a hot snare. Transverse Colon: Seven 1 to 2 cms sessile polyp - removed with a hot snare Descending Colon: Scattered 5-10 mm ulcers in the left colon - random biopsies were obtained Sigmoid Colon: Scattered 5-10 mm ulcers in the left colon - random biopsies were obtained Moderate diverticulosis Rectum: Normal Ano-rectum: Normal Colon preparation: Good after some irrigation Impression and Post Procedure Diagnosis: Colonoscopy Findings: Fourteen medium to large sized polyps removed Moderate diverticulosis seen in the sigmoid colon Scattered 5-10 mm ulcers in the left colon - random biopsies were obtained from right and left colon Plan: Await pathology results Patient has an appointment on 08/30/23 in the [facility] with Kim Rosas NP. Genetic testing since patient had 28 polyps removed over a span of 6 months Repeat Colonoscopy interval based on path results - in 1 year if polyps are adenomatous and due to a hx of multiple colon polyps. (adult colonoscope for future colonoscopies). Received: 08/11/23 Diagnosis A. Cecum, polypectomy: Fragments of tubular adenoma; negative for high-grade dysplasia or carcinoma. B. Colon, ascending, polypectomies (5): - Fragments of tubular adenoma(ta); negative for high-grade dysplasia or carcinoma. - Fragments of sessile serrated lesion(s)/polyp(s); negative for cytologic dysplasia. C. Colon, random right, biopsy: Mildly active colitis. D. Colon, transverse, polypectomies (7): Fragments of tubular adenomata; negative for high-grade dysplasia or carcinoma. E. Colon, left, biopsy: Focally active colitis. COMMENT: Diagnostic features of microscopic colitis or fully-developed inflammatory bowel disease are not identified; however, early manifestations of inflammatory bowel disease can present with active colitis without fully developed chronic inflammatory changes TODAY'S VISIT Pt has been lost to follow up since 02/2023 Her last colonoscopy was 08/2023 and at that time she still had quite large polyps removed which necessitated another 1 year recall. At that time she had 28 polyps removed over the [place] 6 months. She is aware that she has due for another colonoscopy because of this is agreeable to it scheduled. She was not aware of the finding of colitis because she never came back to see me and how this is likely impacting her ongoing diarrhea and fecal incontinence. Since the biopsy was not completely conclusive we need some other testing to make sure we get the right diagnosis and treat her accordingly. Once I explained this to her and we uncover her troubles with transportation (and I advised her that are transportation service likely can help her since she lives in [place]) she is agreeable to try to get some stool testing and additional blood testing. She has GASTON and denies any other respiratory or cardiac problems. There are no prior problems with anesthesia or sedation. No ID problems Her diarrhea and fecal accidents continue. She has severe transportation problems to get the stool samples returned. Give # for tranportation services. She DOES have some formed stools but with severely elevated CRP in past and colitis on biopsy last scope unsure if this is an element of exacerbation and remission of IBD. ROV 8 weeks. PFSH Medical History Anxiety and depression GERD (gastroesophageal reflux disease) Hx of degenerative disc disease IBS (irritable bowel syndrome) Interstitial cystitis Migraine GASTON on CPAP PTSD (post-traumatic stress disorder) Recurrent urinary tract infection Urgency incontinence UTI (urinary tract infection) Surgical History History of cystoscopy History of surgery History of esophagogastroduodenoscopy (EGD) Hx of colonoscopy Family History Mother High cholesterol Sister High cholesterol Paternal Aunt Diabetes Paternal Grandmother Bone cancer Paternal Grandfather Cancer Family/Other FH: juvenile onset diabetes mellitus Social History Alcohol intake: current Alcohol intake frequency: does not drink Patient Tobacco Use Status: Never used Tobacco Review of Systems Const Denies fatigue, Denies fever(s), Denies night sweats, Denies poor appetite and Denies weight loss Eyes Details: glasses Reports requires corrective lenses ENT Reports Normal hearing present, Denies dental pain, Denies dysphagia, Denies hearing loss, Denies mouth pain, Denies odynophagia, Denies throat swelling, Denies tongue swelling and Reports other (Dentition adequate) Card Reports no additional complaints Resp Reports no additional complaints GI Details: Fecal incontinence Denies abdominal pain, Denies melena, Denies bloating, Denies hematochezia, Denies constipation, Reports GI cramping, Denies dysphagia, Denies excessive flatus, Denies early satiety, Denies heartburn, Reports diarrhea, Denies nausea, Denies odynophagia, Denies vomiting and Denies hematemesis Skin/Breast Denies pruritus, Denies lesions, Denies rash and Denies jaundice Neuro Reports Normal hearing present and Denies Abnormal speech present Endo Denies fatigue Aller/Immun Denies throat swelling and Denies tongue swelling Physical Exam Const General: cooperative, no acute distress, well developed and well groomed Nutritional Appearance: well nourished and obese Orientation/consciousness: oriented to person, oriented to place and oriented to time Limitations: No language barrier HEENT Head: Yes normocephalic and Yes atraumatic Eyes General: appearance normal, both eyes and all related structures Pupils: Equal, round and reactive pupils present Neck Neck: Yes normal visual inspection and Yes no lymphadenopathy Thyroid: Thyroid normal Resp Effort & Inspection: normal respiratory effort and able to speak in complete sentences Auscultation: clear to auscultation bilaterally Cardio Rate: regular rate Rhythm: regular rhythm Heart sounds: Normal, physiologic split S2 sound present Peripheral pulses: radial pulses present and posterior tibial pulses present GI Inspection: No distended, Yes Abdominal panniculus present and Yes obesity Palpation (GI): Soft to palpation, nontender, no guarding, not rigid and No hepatosplenomegaly present Percussion: Yes normal to percussion Auscultation: normal bowel sounds Rectal Exam - Female: deferred Skin General skin exam: no rashes or lesions noted, turgor normal, skin not dry, no jaundice, No spider nevi and no striae Rashes: no rashes Nails: normal Neuro General: oriented to person, oriented to place and oriented to time Cranial nerves: Yes Equal, round and reactive pupils present and Yes Normal hearing present Speech: No Abnormal speech present Extrem General: Yes normal to inspection, No clubbing, No cyanosis and No edema Psych Appearance: grossly normal and well kempt Mental Status: mental status grossly normal Speech and movement: Normal speech and movement present Affect: normal affect Attitude: cooperative Thought process: Circumstantial thought process present and not confabulating Thought content: Normal thought content present Insight: Limited insight present (Psych) Judgement: Limited judgement present (Psych) Assessment & Plan Assessment & Plan (1) Tubular adenoma of colon: Comment: 02/2023 scope= multiple large polyps repeat in 6 months Code(s): D12.6 - Benign neoplasm of colon, unspecified Category: Medical (2) Pre-op examination: Code(s): Z01.818 - Encounter for other preprocedural examination Category: Medical (3) Diarrhea: Code(s): R19.7 - Diarrhea, unspecified Category: Medical (4) Colitis: Code(s): K52.9 - Noninfective gastroenteritis and colitis, unspecified Category: Medical (5) Elevated C-reactive protein (CRP): Code(s): R79.82 - Elevated C-reactive protein (CRP) Category: Medical Plan Pt has been lost to follow up since 02/2023 Her last colonoscopy was 08/2023 and at that time she still had quite large polyps removed which necessitated another 1 year recall. At that time she had 28 polyps removed over the [place] 6 months. She is aware that she has due for another colonoscopy because of this is agreeable to it scheduled. She was not aware of the finding of colitis because she never came back to see me and how this is likely impacting her ongoing diarrhea and fecal incontinence. Since the biopsy was not completely conclusive we need some other testing to make sure we get the right diagnosis and treat her accordingly. Once I explained this to her and we uncover her troubles with transportation (and I advised her that are transportation service likely can help her since she lives in [place]) she is agreeable to try to get some stool testing and additional blood testing. She has GASTON and denies any other respiratory or cardiac problems. There are no prior problems with anesthesia or sedation. No ID problems Her diarrhea and fecal accidents continue. She has severe transportation problems to get the stool samples returned. Give # for tranportation services. She DOES have some formed stools but with severely elevated CRP in past and colitis on biopsy last scope unsure if this is an element of exacerbation and remission of IBD. ROV 8 weeks. Orders: Orders Colonoscopy - GI Use Only Today D12.6 - Benign neoplasm of colon, unspecified, K52.9 - Noninfective gastroenteritis and colitis, unspecified, R19.7 - Diarrhea, unspecified, R79.82 - Elevated C-reactive protein (CRP), Z01.818 - Encounter for other preprocedural examination C Reactive Protein Today D12.6 - Benign neoplasm of colon, unspecified, K52.9 - Noninfective gastroenteritis and colitis, unspecified, R19.7 - Diarrhea, unspecified, R79.82 - Elevated C-reactive protein (CRP), Z01.818 - Encounter for other preprocedural examination [facility] Today D12.6 - Benign neoplasm of colon, unspecified, K52.9 - Noninfective gastroenteritis and colitis, unspecified, R19.7 - Diarrhea, unspecified, R79.82 - Elevated C-reactive protein (CRP), Z01.818 - Encounter for other preprocedural examination Comprehensive Met. Panel Today D12.6 - Benign neoplasm of colon, unspecified, K52.9 - Noninfective gastroenteritis and colitis, unspecified, R19.7 - Diarrhea, unspecified, R79.82 - Elevated C-reactive protein (CRP), Z01.818 - Encounter for other preprocedural examination Complete Blood Count Auto Diff Today D12.6 - Benign neoplasm of colon, unspecified, K52.9 - Noninfective gastroenteritis and colitis, unspecified, R19.7 - Diarrhea, unspecified, R79.82 - Elevated C-reactive protein (CRP), Z01.818 - Encounter for other preprocedural examination Calprotectin, Fecal Today D12.6 - Benign neoplasm of colon, unspecified, K52.9 - Noninfective gastroenteritis and colitis, unspecified, R19.7 - Diarrhea, unspecified, R79.82 - Elevated C-reactive protein (CRP), Z01.818 - Encounter for other preprocedural examination Rast Allergen Today D12.6 - Benign neoplasm of colon, unspecified, K52.9 - Noninfective gastroenteritis and colitis, unspecified, R19.7 - Diarrhea, unspecified, R79.82 - Elevated C-reactive protein (CRP), Z01.818 - Encounter for other preprocedural examination Medications: New peg 3350-electrolytes 236-22.74-6.74 -5.86 gram (Golytely) until fecal effluent is clear; do not exceed a total volume of 2,000 mL 240 mL PO Q10M 4,000 mL 0RF 1 day Z12.11 - Encounter for screening for malignant neoplasm of colon bisacodyl (Dulcolax (bisacodyl)) 10 mg (2 x 5 mg) PO BEDTIME 4 tabs 0RF 2 days Coding Level of Care Code Est Pt Level 4 (74606) Diagnoses Tubular adenoma of colon D12.6 Pre-op examination Z01.818 Diarrhea R19.7 Colitis K52.9 Elevated C-reactive protein (CRP) R79.82 Time Spent (min) 36
== END 2024-06-18 13:07 | disposition home or self-care (01) ==
PROVIDERS: PCP Nurse Practitioner Family; Visit Provider Nurse Practitioner
DX: Z01.818 Encounter for other preprocedural examination (principal); Z86.010 Personal history of colon polyps; K52.9 Noninfective gastroenteritis and colitis, unspecified; R79.82 Elevated C-reactive protein (CRP)
CPT/HCPCS: 99214

== ENCOUNTER 2024-07-16 12:31 | Outpatient (AMB) | payer OTHER, SELFPAY ==
--- NOTE | 2024-07-16 13:02 | A.OFFVIS_ITS ---
Intake Visit Reasons: 6m/PVR Intake Note: Patient is present for follow up PVR Urology Medications: tamsulosin, elmiron Blood Thinner: none PVR: Oncology Physician Assistant Required: No Accompanied by: Self / Same As Patient Allergies aspirin [ASPIRIN] Allergy (Intermediate, Verified 07/16/24 13:28) VOMITING Penicillins [PENICILLINS] Adverse Reaction (Intermediate, Verified 07/16/24 13:28) SHAKINESS lactose [LACTOSE] Adverse Reaction (Unknown, Verified 07/16/24 13:28) SEVERE DIARRHEA From KEFLEX Adverse Reaction (Intermediate, Uncoded 07/16/24 13:28) SHAKINESS Medication List - Last Reconciled 07/16/24 by FLORA Ling- azelastine intranasal bisacodyl (Dulcolax (bisacodyl)) 10 mg (2 x 5 mg) PO BEDTIME 2 days bupropion HCl SR 200 mg PO BID bupropion HCl XL 300 mg PO DAILY cetirizine 10 mg PO DAILY cholecalciferol (vitamin D3) 25 mcg PO DAILY dicyclomine 20 mg PO QID diphenhydramine HCl (Banophen) 25 mg PO BEDTIME duloxetine mg PO ferrous sulfate 0 mg PO galcanezumab-gnlm (Emgality Pen) mg subcut loperamide 2 mg PO QID PRN losartan 25 mg PO DAILY medroxyprogesterone mg IM montelukast 10 mg PO DAILY pantoprazole 40 mg PO BID peg 3350-electrolytes 236-22.74-6.74 -5.86 gram (Golytely) 240 mL PO Q10M 1 day pentosan polysulfate sodium (Elmiron) 100 mg PO TID 90 days pregabalin 75 mg PO BID simethicone (Gas Relief Ultra Strength) 180 mg PO QID PRN sulfamethoxazole-trimethoprim 400-80 mg 1 tab PO DAILY tamsulosin 0.4 mg PO BEDTIME 90 days triamcinolone acetonide (Nasacort) intranasal zonisamide 0 mg PO HPI Comments Details: Larisa is a pleasant 54-year-old female patient of . She has a past medical history of anxiety, depression, PTSD, migraines, degenerative disc disease, obstructive sleep apnea on CPAP, IBS, recurrent urinary tract infections, interstitial cystitis, and GERD. She presents to the office today for follow-up of her interstitial cystitis, atrophic right kidney, and renal cysts. In discussion with the patient today she reports to be doing and feeling well. She discusses her recent surgery for her left broken ankle after a mechanical fall at her sister's house. She discusses having went to rehab however is now home back her apartment. She currently denies any bothersome urinary issues or concerns. In office urinalysis results reviewed with the patient today PVR 0 mL. She reports compliance with Flomax and Elmiron as prescribed. We discussed trialing/decreasing dose of Elmiron due to side effects. However, discusses her reluctancy in doing so has she feels this has significantly improved her IC symptoms She otherwise denies any urinary issues or concerns at this time. She denies urinary urgency, urinary frequency, incontinence, nocturia, hematuria, dysuria, foul smelling urine, changes to urinary stream, flank pain, fever, and or chills. She is happy with her current voiding parameters. [facility] Medical History Anxiety and depression PTSD (post-traumatic stress disorder) Migraine Hx of degenerative disc disease GASTON on CPAP IBS (irritable bowel syndrome) Recurrent urinary tract infection Interstitial cystitis GERD (gastroesophageal reflux disease) Urgency incontinence UTI (urinary tract infection) Surgical History History of cystoscopy History of surgery History of esophagogastroduodenoscopy (EGD) Hx of colonoscopy Family History Mother High cholesterol Sister High cholesterol Paternal Aunt Diabetes Paternal Grandmother Bone cancer Paternal Grandfather Cancer Family/Other FH: juvenile onset diabetes mellitus Social History Alcohol intake: current Alcohol intake frequency: does not drink Patient Tobacco Use Status: Never used Tobacco Review of Systems Eyes Reports no additional complaints ENT Reports no additional complaints Card Reports no additional complaints Resp Reports no additional complaints GI Reports as per HPI Reports as per HPI Musc Reports as per HPI Neuro Reports as per HPI Psych Reports as per HPI Endo Reports no additional complaints Gabriel/Lymph Reports no additional complaints Aller/Immun Reports no additional complaints Physical Exam Const General: cooperative, healthy appearing, comfortable, no acute distress, well developed, alert and awake Nutritional Appearance: overweight Orientation/consciousness: patient oriented x3 Limitations: wheelchair HEENT Head: Yes normal to inspection, Yes normocephalic and Yes atraumatic Ears: hearing grossly normal bilaterally Eyes General: appearance normal, both eyes and all related structures Neck Neck: Yes normal visual inspection and Yes trachea midline Chest Chest palpation & inspection: normal inspection of the chest Resp Effort & Inspection: normal respiratory effort and able to speak in complete sentences Cardio Rate: regular rate GI Inspection: Yes normal to inspection General: Yes no CVA tenderness Back/Spine/Pelvis Back: no CVA tenderness Skin General skin exam: no rashes or lesions noted Neuro General: patient oriented x3 Extrem General: Yes normal to inspection Psych Appearance: grossly normal and well kempt Mental Status: mental status grossly normal Speech and movement: Normal speech and movement present and Clear speech present Affect: normal affect Attitude: cooperative Thought process: Normal thought process present Thought content: Normal thought content present Insight: Fair insight present (Psych) Judgement: Fair judgement present (Psych) Office Procedures Post Void Residual Post Residual Void Post Void Residual (PVR): 0 [id number] Void Residual by ultrasound Results AMB Urinalysis, Automated UA Leukoctes 15 Adela/uL Last Edit by [employer] on 07/16/24 13:24 UA Nitrite Last Edit by [employer] on 07/16/24 13:24 UA Urobilinogen 0.2 mg/dL Last Edit by [employer] on 07/16/24 13:24 UA Protein 30 mg/dL Last Edit by [employer] on 07/16/24 13:24 UA pH 6.0 Last Edit by [employer] on 07/16/24 13:24 UA Blood 0 Roger/uL Last Edit by [employer] on 07/16/24 13:24 UA Specific Loving 1.025 Last Edit by [employer] on 07/16/24 13:24 UA Ketone Last Edit by [employer] on 07/16/24 13:24 UA Bilirubin 2 mg/dL Last Edit by [employer] on 07/16/24 13:24 UA Glucose 0 mg/dL Last Edit by [employer] on 07/16/24 13:24 Results Reviewed Results Reviewed: Laboratory Last Values Urine pH (Auto) 6.0 07/16/24 13:06 Specific Loving (Auto) 1.025 07/16/24 13:06 Urine Protein (Auto) 30 mg/dL 07/16/24 13:06 Glucose (UA)(Auto) 0 mg/dL 07/16/24 13:06 Urine Blood (Auto) 0 Roger/uL 07/16/24 13:06 Urine Bilirubin (Auto) 2 mg/dL 07/16/24 13:06 Urine Urobilinogen (Auto) 0.2 mg/dL 07/16/24 13:06 Leukocyte Esterase (Auto) 15 Adela/uL 07/16/24 13:06 Assessment & Plan Assessment & Plan (1) Urinary urgency: Code(s): R39.15 - Urgency of urination Category: Medical (2) Interstitial cystitis: Code(s): N30.10 - Interstitial cystitis (chronic) without hematuria Category: Medical Plan In office urinalysis results reviewed with the patient today; as noted above. PVR 0 mL. Discussed weaning Elmiron and trial of different medication for interstitial cystitis Discussed bladder triggers/irritants. Continue Flomax and Elmiron per patient request; however will decrease Elmiron to b.i.d. versus t.i.d. Patient currently denies any bothersome urinary issues or concerns. She reports to be happy with current voiding parameters. Will obtain retroperitoneal ultrasound for further assessment evaluation in surveillance monitoring of renal cyst Follow-up in 6 months with PVR; or sooner with any issues, concerns, and or questions. Orders: Orders AMB Urinalysis Automated Today Z13.9 - Encounter for screening, unspecified AMB Post Void Residual by ultrasound Today N39.41 - Urge incontinence US retroperitoneal comp Today N30.10 - Interstitial cystitis (chronic) without hematuria, N39.0 - Urinary tract infection, site not specified, R39.15 - Urgency of urination Medications: Changed From pentosan polysulfate sodium (Elmiron) 100 mg PO TID 90 days 270 caps 0RF To pentosan polysulfate sodium (Elmiron) 100 mg PO BID 90 days 180 caps 1RF Refilled tamsulosin 0.4 mg PO BEDTIME 90 days 90 caps 3RF N13.4 - Hydroureter, N39.41 - Urge incontinence Patient Instructions: The patient had an opportunity to ask questions regarding the treatment plan. All questions were answered. Physical exam, labs, and imaging were discussed and reviewed in detail. As well as risks, benefits, and discussion of treatment choices. No major barriers to understanding were identified. The patient expressed understanding and agreement with the above treatment plan. The patient was made aware they should contact our office by phone for worsening of their current condition, the appearance of new symptoms, or with any questions or concerns. Compliance is encouraged with any medications and follow up testing that is ordered. It is a privilege to be allowed the opportunity to participate in? your urological care.? Again, if you have any questions or con cerns If you have any questions or concerns please do not hesitate to contact me. The office is [phone]. This note is constructed using voice recognition software. While every effort has been made to ensure accuracy genetics teacher errors may have been included. Yours sincerely, TIEN Ling Coding Level of Care Code Est Pt Level 3 (92417) Complex EM visit Add On G2211 Diagnoses Urinary urgency R39.15 Interstitial cystitis N30.10 CPT Codes Post Residual Void - PVR CPT Code: 20131-Ubie Void Residual by ultrasound ([id number])
== END 2024-07-16 13:29 | disposition home or self-care (01) ==
PROVIDERS: PCP Nurse Practitioner Family; Visit Provider Nurse Practitioner Family
DX: R39.15 Urgency of urination (principal); N30.10 Interstitial cystitis (chronic) without hematuria; Z13.9 Encounter for screening, unspecified
CPT/HCPCS: 99213; G2211

== ENCOUNTER → 2024-07-16 12:31 | Outpatient (BNVA) | payer OTHER, SELFPAY | PROVIDERS: PCP Nurse Practitioner Family; Visit Provider Nurse Practitioner Family | DX: R39.15 Urgency of urination (principal); N30.00 Acute cystitis without hematuria | CPT/HCPCS: 51798; 81003; 99212 ==

== ENCOUNTER 2024-12-31 08:02 | Day surgery (SDC) | payer OTHER, SELFPAY ==
--- OUTSIDE RECORDS SUMMARY | 2024-12-31 08:03 | XMS_ITS | Data Portability ---
Author Organization MD - [facility] FACILITY Address [address] [place] [id number] Care Team Providers Care Soaping Department Supervisor Name Role Phone CAR LUI Primary Care Provider Assessment Encounter Date Assessment Date Assessment LastModified by Organization Details LastModified Time 10/15/2020 10/15/2020 Overview/History : 50-year-old female with past medical history significant for depression, anxiety, solitary kidney, migraines, seasonal allergies, GERD, overactive bladder, new to [facility], who presents for complaints of low grade fever, headache, chills, nasal congestion and rhinorrhea, productive cough and sinus pain for about 1 week. She had a televisit with her primary care and was prescribed doxycycline, she has 1 dose left and states that she is feeling much better this week. However she would like a COVID test. She has been using [id number] Flonase for sinus congestion as well. She has no known positive exposures or sick contacts. Good PO intake, no appetite change. Exam: low grade fever, RRR, normotensive, normal resps, O2 sat 98% on RA, non-toxic, well appearing. GENERAL: well developed, well nourished, appears stated age, sitting comfortably in no acute distress. HEENT: normocephalic, atraumatic, no sinus tenderness, PERRLA, EOMI, sclera anicteric, no conjunctival injection, external auditory canal clear, TMs pearly white with cone of light, nares patent, septum midline, turbinates mildly erythematous, non-edematous, posterior pharynx erythematous without lesions or exudate, mmm. NECK: trachea midline, no masses, cervical lymphadenopathy, or thyromegaly. RESP: normal I:E, clear to auscultation bilaterally, no wheezes, rhonchi, or rales. CARDIO: RRR, normal S1, S2, no murmurs, rubs, or gallops, radial pulses 2+ bilaterally. NEURO: awake, alert, oriented x3, no focal neuro deficits, moving all extremities spontaneously. PSYCH: pleasant, hyperverbal, circumstantial, appropriate mood and affect. DDx considered, but not limited to: COVID/URI - possible, low grade fever and erythematous posterior pharynx acute bacterial rhinosinusitis - less likely, currently being treated with abx, no sinus tenderness flu - less likely, low grade fever, no rigors, myalgias, n/v/d, sxs onset > 48 hrs PNA - unlikely, lungs CTAB, no cough or chest congestion on exam and sxs improving. Work up/Results: COVID test pending. Did not test for flu since sxs onset > 48 hours and sxs improving. Plan/Discussion: You likely have a resolving viral upper respiratory infection. Possibly COVID. Will call with test results in 3-5 days. You should continue to quarantine at least 10 days from symptom onset, must be asymptomatic and afebrile >48 hours without medication prior to breaking quarantine. Continue to hydrate well and replete electrolytes. Treat symptoms, should improve over next week. Can use OTC tylenol for fever/chills/aches . Avoid motrin/ibuprofen due to solitary kidney. Call for new or worsening sxs. Thank you for your visit with [facility] today. We cannot always find the exact cause of your symptoms during your initial visit. Please follow up with your primary care provider or specialist to be rechecked or seek medical attention if your symptoms do not go away or get worse. If you develop any new or worsening symptoms and need after hours care, please go to nearest ER and/or call 911. If you have additional concerns or develop a change in your condition between 8am-10pm, please call [facility] at [phone] to help navigate your care. Proper Personal Protective Equipment (PPE), including gloves, eye protection, N95 mask, gown, and shoe covers were donned and doffed appropriately and all equipment cleaned using approved technique with germicidal disposable wipes prior to and after care of this patient according to [facility]'s infection prevention protocols. [email or web address] Not available 10/15/2020 17:04:37 11/24/2020 11/24/2020 Overview/History :T is a 50-year-old female that is known to [facility] units provider. She contacted [facility] as she has been having dry cough and some left-sided ear pain. She is presently being treated for an ear infection. She and her PCP wants to rule out COVID-19 as the cause for her dry cough. Exam: On exam patient is overall well-appearing she is afebrile and hemodynamically stable. Lungs clear to auscultation bilaterally. Left TM does appear erythematous and there is evidence of clear fluid, she does have tenderness with palpation of this year. Mild erythema to the oropharynx but no exudates. No lymphadenopathy. DDx considered, but not limited to:Otalgia is likely due to her diagnosed ear infection, her exam is consistent with this. She presently being treated for this. COVID-19 is possible with report of dry cough that I would expect possibly low grade fever. Viral URI likely the source of her cough. Pneumonia unlikely as lungs clear bilaterally and no fever. Work up/Results:The patient was swabbed for COVID-19. Plan/Discussion:I discussed with the patient that her test results will likely be back in the next 3-5 days. I did attach her primary care provider to the order so that they will also receive a copy of her results. She indicated she had some difficulty getting a paper copy from our medical assistance. I advised her to continue supportive care including staying well hydrated and taking Tylenol as needed for headaches and fever if she were to develop 1. She should continue to take [id number] cough syrup to use for cough at night. She verbalized understanding of discharge instructions as well as emergency room precautions. In order to obtain further information and compare any laboratory results/values, I have accessed old patient records. This information was pertinent in my medical decision making today. Time On Scene with Patient: 00:20:00 [email or web address] Not available 11/25/2020 10:43:07 11/26/2021 11/26/2021 Overview/History : Patient is a 51 year old F, established with , new to provider, with a history of HTN migraine, GERD who presents for cough, congestion and intermittent headache for one week. Patient reports she had intermittent diarrhea that resolved. Patient is vaccinated for COVID19 and has had no sick contacts. Exam: Patient is found answering the door, vitals normal, pt appears well, non-toxic, NAD, A&OX3, with normal ambulation. Lungs auscultate clear, RRR no murmurs, bilateral TM with good light reflex, no erythema or bulging. Nasal turbinates red with clear nasal discharge, postnasal drip noted, pharynx erythematous, no swelling or exudates. DDx considered, but not limited to: influenza, strep, pneumonia, COVID19 Work up/Results: COVID19 pcr pending Plan: MDM/Discussion: You have been seen today for a viral upper respiratory infection and COVID19 testing. We will contact you with results of your COVID19 test if the result is positive. CONTINUE to self quarantine at least until results are received. Speak to your doctors regarding upcoming appointments and their protocols for quarantine given the length of time you have had symptoms. Use over the counter medicine for congestion and cough as needed. Increase fluids to promote hydration and thin secretions. For help with allergies, try local raw honey a few times weekly on food, also try washing or rinsing hair before bed to avoid bringing allergens into the bed linens. Unlikely influenza, no body aches or fever. Unlikely pneumonia, no SOB, lungs auscultate clear. Unlikely strep, no sore throat, no swelling or exudate, no cervical lymphadenopathy. Low suspicion for emergent condition requiring further intervention at this time; however, ER precautions have been given. Advised to follow up with PCP. The verbalizes agreement and understanding of treatment plan. . In order to obtain further information and compare any laboratory results/values, I have accessed . This information was pertinent in my medical decision making today. The patient was last seen on {{}} for {{}}. This information was pertinent in my medical decision making today. Time On Scene with Patient: 00:25:40 [email or web address] Not available 11/26/2021 14:51:01 Plan of Treatment Reminders Order Date Submit Date Provider Last Modified By Organization Details Last Modified Time Details Appointments None recorded. Lab unlisted lab - covid-19 (novel coronavirus ) PCR 2021 022 [email or web address] [facility] (Centralized Electronic Ordering - All Locations), Patient Can Go To The Location Of Their Choice, [id number] 2 12:40:53 SARS CoV 2 RNA (COVID-19), QL, vice president global advertising sales-PCR, respiratory specimen 2020 021 VANIA [facility] (Centralized Electronic Ordering - All Locations), Patient Can Go To The Location Of Their Choice, [id number] 1 22:33:10 SARS CoV 2 RNA (COVID-19), QL, vice president global advertising sales-PCR, respiratory specimen 2019 020 [email or web address] [facility] (Centralized Electronic Ordering - All Locations), Patient Can Go To The Location Of Their Choice, [id number] 0 15:17:51 Referral None recorded. Procedures None recorded. Surgeries None recorded. Imaging None recorded. Medication Orders None recorded. Patient TargetsNo targets recorded. Patient Instructions Encounter Date Encounter Id Patient Instructions Last Modified By Organization Details Last Modified Time 11/24/2020 [id number] Inhaler Instructions Before use, you need to prime the inhaler: ? Take the cap off the mouthpiece and put the inhaler in the spacer ? Shake the inhaler for 5 seconds ? Hold the inhaler upright with 1 finger on the top of the canister, the thumb on the bottom of the inhaler, and your other hand holding the spacer ? Express a large breath ? Close lips around spacer ? Press down on the canister ? After you press down on the canister, breathe (or have your child breathe in) deeply and slowly and hold your breath for 10 seconds ? Take out of your mouth and slowly exhale ? If you were instructed to take 2 puffs of the inhaler, wait one minute before you give the second puff. Shake the inhaler again before the second puff. ? If the inhaler is a steroid medicine (also called a ? g lucocorticoid? or ? c orticosteroid? ), rinse out your mouth, gargle, and spit out the water Cleaning: If you use the inhaler every day, you need to clean it at least once a week. If you use less often, clean the inhaler when you see powder in or around the hole. To clean an inhaler: ? Remove the canister and cap from the mouthpiece. Do not wash the canister or put the canister under water. ? Run warm water through the mouthpiece for 30 to 60 seconds ? Shake the water off of the mouthpiece and let it air dry Clean the spacer every 1-2 weeks. First, remove the inhaler from the spacer. Wash the spacer with warm water and dishwashing soap, but do NOT rinse it. Then let it air dry. Leaving the spacer a little soapy after cleaning actually helps it work better. [email or web address] Not available 11/24/2020 20:33:41 Reason for Referral None Reported. Results Created Date Observation Date Name Description Value Unit Range Abnormal Flag Note LastModifiedBy Organization Detail LastModifiedTime 10/15/20 20 10/20/2020 SARS CoV 2 RNA, QL probe , unspe cifie d speci men covid-19, (RT)-PCR (notde ) Not detec sharmin 2019- novel Coron aviru s (2018nCoV ) not detec sharmin by the qRT-P CR assay . If clini noemí suspi cion for COVID -19 is high, sujit nue to mainshahriar ain preca ution s and consi [place] repea t testi ng. Resul t repor sharmin to [facility]. This test has been autho rized by the FDA under an Emerg ency Use Autho rizat ion (EUA) for use by autho rized labor atori es. Test perfo rmed by Clini noemí [facility] or, [facility] at the [facility] of [facility] and Sylvia sunshine, [address] [place] [id number] . CLIA ID: [id number] , CAP: [id number]. Medic al Direc tor: Larisa Willams, PhD FAC (NOTE ) The CRSP SARS- CoV-2 Real- time Rever se Trans cript ase (RT)- PCR Diagn ostic Assay is a real- time RT-PC R test inten ded for the quali tativ e detec tion of nucle ic acid from the SARS- CoV-2 in nasop haryn geal and oroph aryng eal swabs colle cted from indiv idual s who may have contr acted the virus . Testi ng is limit ed to the Clini noemí Resea [facility] at the [facility] tut which is certi fied under the Clini noemí Labor atory Impro vemen t Amend ments of 1987 (CLIA ), 42 U.S.C . ?263a , to perfo rm high compl exity tests . = Posit edison resul ts are indic ative of activ e infec tion with SARS- CoV-2 but do not rule out bacte rial infec tion or co-in fecti on with other virus es. The agent detec sharmin may not be the defin ite cause of disea se. In addit ion, nucle ic acid detec tion can persi st follo wing clear ance of activ e viral repli catio n. Labor atori es withi n the [place] and its jesus jaya s are requi red to repor t all posit edison resul ts to the appro priat e publi c healt h autho ritie s. = Negat edison resul ts do not precl ude SARS- CoV-2 infec tion and shoul d not be used as the sole basis for patie nt treat ment or other patie nt manag ement decis ions. Negat edison resul ts must be combi larissa with clini noemí obser vatio ns, patie nt histo ry, and epide miolo gical infor matio n. Not Available [facility] (Centralized Electronic Ordering - All Locations) Patient Can Go To The Location Of Their Choice, [id number] 10/20/2020 00:07:30 11/24/19 21 11/25/2020 SARS CoV 2 RNA (COVI D-19) , QL, vice president global advertising sales-P CR, respi rator y speci men covid-19, (RT)-PCR (neg) NEGAT EDISON 2018- novel Coron aviru s (2018nCoV ) not detec sharmin by the qRT-P CR assay . If clini noemí suspi cion for COVID -19 is high, sujit nue to maint ain preca ution s and consi madison repea t testi ng. Resul t repor sharmin to [facility]. This test has been autho rized by the FDA under an Emerg ency Use Autho rizat ion (EUA) for use by autho rized labor atori es. Test perfo rmed by Clini noemí [facility] [employer] at the [facility] of [facility] and Sylvia sunshine, [address] [place] [address] . CLIA ID: [id number] , CAP: [id number]. Medic al Direc tor: Larisa Willams, PhD FACMG (NOTE ) The CRSP SARS- CoV-2 Real- time Rever se Trans cript ase (RT)- PCR Diagn ostic Assay is a real- time RT-PC R test inten ded for the quali tativ e detec tion of nucle ic acid from the SARS- CoV-2 in nasop haryn geal and oroph aryng eal swabs colle cted from indiv idual s who may have contr acted the virus . Testi ng is limit ed to the Clini noemí Res[facility] [place] or at the [facility] which is certi fied under the Clini noemí Labor atory Impro vemen t Amend ments of 1987 (CLIA ), 42 U.S.C . ?263a , to perfo rm high compl exity tests . = Posit edison resul ts are indic ative of activ e infec tion with SARS- CoV-2 but do not rule out bacte rial infec tion or co-in fecti on with other virus es. The agent detec sharmin may not be the defin ite cause of disea se. In addit ion, nucle ic acid detec tion can persi st follo wing clear ance of activ e viral repli catio n. Labor atori es withi n the [place] and its jesus jaya s are requi red to repor t all posit edison resul ts to the appro priat e publi c healt h autho ritie s. = Negat edison resul ts do not precl ude SARS- CoV-2 infec tion and shoul d not be used as the sole basis for patie nt treat ment or other patie nt manag ement decis ions. Negat edison resul ts must be combi larissa with clini noemí obser vatio ns, patie nt histo ry, and epide miolo gical infor matio n. Not Available [facility] (Centralized Electronic Ordering - All Locations) Patient Can Go To The Location Of Their Choice, [id number] 11/25/2020 22:33:10 11/26/19 22 11/28/20212018 NOVEL CORON AVIRU S, PCR covid-19, PCR NOT DETEC SHARMIN Refer ence range : NOT DETEC SHARMIN (NOTE ) A Not Detec sharmin resul t means that SARS- CoV-2 RNA was not prese nt in the speci men above the limit of detec tion. A Not Detec sharmin resul t does not rule out the possi bilit y of COVID -19 and shoul d not be used as the sole basis for treat ment or patie nt manag ement decis ions. If COVID -19 is still suspe cted, based on expos ure histo ry toget her with other clini noemí findi ngs, re-te sting shoul d be consi dered in the farhat xt of clini noemí obser vatio ns and epide miolo gical data for patie nt manag ement decis ions. = Test Metho d: Nucle ic Acid Ampli ficat ion Test inclu ding rever se trans cript ion polym erase chain react ion (RT-P CR) and trans cript ion media sharmin ampli ficat ion (TMA) . The test metho d meets the [place] Cente rs for Disea se Contr ol and preve ntion (CDC) pre depar ture and arriv al requi remen t for viral test for COVID -19 dated 2020. Testi ng requi remen ts for trave ashutosh march rosado e with time. The patie nt is respo nsibl e for deter minin g the test requi remen ts for each natio n while they are travherlinda boykin. This test has been autho rized by the FDA under an Emerg ency Use Autho rizat ion (EUA) for use by autho rized labor atori es. = Pleas e revie w the Fact Sheet s and FDA autho rized label ing avail able for healt h care provi ders and patie nts using the follo wing websi shawn: https :// w.que stdia gnost ics.c om/ho me/Co vid-1 9/HCP /Ques tIVD/ fact- sheet .html https :// w.que stdia gnost ics.c om/ho me/Co vid-1 9/Pat ients / [facility] IVD/f act-s heet. html = Due to the curre nt publi c healt h emerg ency, [facility] is accep ting sampl es from appro priat e clini noemí sourc es colle cted using wide varie ty of swabs and trans port media for COVID -19. Not detec sharmin test resul ts deriv ed from speci mens recei john in non- comme rcial ly manuf actur ed viral colle ction kits or those not yet autho rized by FDA for COVID -19 testi ng shoul d be cauti ously evalu ated and take extra preca ution s such as addit ional clini noemí monit oring , inclu ding colle ction of an addit ional speci men. = Addit ional infor matio n about COVID -19 can be found at the [facility] websi te: www.[employer] uestD [employer] .[employer]/ Covid 19. Test Perfo rmed by: [employer], [address], [place]. [address] . Labor atory Direc tor: Lilia celaya MD. Not Available [facility] (Centralized Electronic Ordering - All Locations) Patient Can Go To The Location Of Their Choice, [id number] 11/28/2021 23:57:18 Result Notes None recorded. Problems Name Problem SNOMED Code Status Onset Date Resolution Date Notes Provider Name and Address Organization Details Recorded Time Hypertensi ve disorder 25977710 Completed 201910/15/2020 ENRIQUETA CANTU [address] [place], [address], [place] [facility] 0 17:05:04 Anxiety 83783521 Active 2019 ENRIQUETA CANTU [address] [place], [address], [place] [facility] 0 17:05:11 Problem Notes None recorded. Procedures Surgical History Date Name Laterality Status Provider Name and Address Organization Details Recorded Time 9 excision of bunion completed NATHAN NORMAN NP [address], [place], [address], [place] [facility] 11/26/2021 10:49:10 Imaging Results None recorded. Procedure Notes None recorded. Medical Equipment None Reported. Allergies Allergen ID Allergen Name Allergen Category Reaction Reaction Severity Criticality Documentation Date Start Date Code Code System Note Provider Name and Address Organization Details Recorded Time 551463 Product containin g penicilli n (product) medicatio n Not available Not available Not available 10/15/2020 44041 8001 SNOMED ENRIQUETA CANTU [address] [facility] [place], [address], [place] [facility] 0 16:13:50 618102 aspirin medicatio n Not available Not available Not available 10/15/2020 1191 RxNorm ENRIQUETA CANTU [address], [facility] [place], [address], [place] [facility] 0 16:13:55 525012 lactose food,medi cation Not available Not available Not available 10/15/2020 6211 RxNorm ENRIQUETA CANTU [address], [place], [address], [place] [facility] 0 16:14:05 Medications Name Sig Start Date Stop Date Status Note LastModified by Organization Details LastModified Time doxycycline hyclate 100 mg capsule 11/26 completed Not Available Not Available Not Available divalproex 250 mg tablet,barby yed release 11/26 completed Not Available Not Available Not Available loperamide 2 mg capsule active Not Available Not Available Not Available cetirizine 10 mg tablet active Not Available Not Available Not Available azithromyci n 250 mg tablet 11/26 completed Not Available Not Available Not Available simethicone 180 mg capsule active Not Available Not Available Not Available clarithromy ayad 500 mg tablet 11/26 completed Not Available Not Available Not Available Elmiron 100 mg capsule active Not Available Not Available N ot Available metronidazo le 500 mg tablet 10/15 completed Not Available Not Available Not Available divalproex 500 mg tablet,barby yed release 11/26 completed Not Available Not Available Not Available acetaminoph en 500 mg tablet active Not Available Not Available Not Available triamcinolo ne acetonide 0.1 % topical cream 11/26 completed Not Available Not Available Not Available zolmitripta n 5 mg tablet active Not Available Not Available Not Available pantoprazol e 20 mg tablet,barby yed release 11/26 completed Not Available Not Available Not Available zonisamide 100 mg capsule 11/26 completed Not Available Not Available Not Available magnesium oxide 400 mg (241.3 mg magnesium) tablet active Not Available Not Available Not Available pantoprazol e 40 mg tablet,barby yed release active Not Available Not Available Not Available Banophen 25 mg tablet 11/26 completed Not Available Not Available Not Available losartan 25 mg tablet active Not Available Not Available No t Available oxybutynin chloride ER 5 mg tablet,exte nded release 24 hr active Not Available Not Available Not Available Banophen 25 mg capsule active Not Available Not Available N ot Available montelukast 10 mg tablet active Not Available Not Available Not Available azelastine 137 mcg (0.1 %) nasal spray active Not Available Not Available Not Available ibuprofen 600 mg tablet 11/26 completed Not Available Not Available Not Available imipramine 10 mg tablet active Not Available Not Available Not Available medroxyprog esterone 150 mg/mL intramuscul ar suspension active Not Available Not Available N ot Available bupropion HCl SR 200 mg tablet,12 hr sustained-r elease active Not Available Not Available Not Available medroxyprog esterone 150 mg/mL intramuscul ar syringe 11/26 completed Not Available Not Available Not Available Vitamin D3 25 mcg (1,000 unit) tablet active Not Available Not Available Not Available cyclobenzap rine 5 mg tablet active Not Available Not Available Not Available zonisamide 25 mg capsule 11/26 completed Not Available Not Available Not Available zonisamide 50 mg capsule active Not Available Not Available Not Available nitrofurant oin monohydrate /macrocryst als 100 mg capsule 11/26 completed Not Available Not Available Not Available duloxetine 60 mg capsule,del ayed release active Not Available Not Available Not Available pregabalin 75 mg capsule active Not Available Not Available Not Available Botox active Not Available Not Availa ble Not Available Depo-Medical Sales Consultant a active Not Available Not Available Not Available olopatadine 0.2 % eye drops 11/26 completed Not Available Not Available Not Available FeroSul 325 mg (65 mg iron) tablet active Not Available Not Available Not Available diclofenac 1 % topical gel active Not Available Not Available Not Available Creon 24,000-76,0 00-120,000 unit capsule,del ayed release 11/26 completed Not Available Not Available Not Available Nasacort 55 mcg nasal spray aerosol active Not Available Not Available Not Available Aimovig Autoinjecto r 70 mg/mL subcutaneou s auto-inject or active Not Available Not Available Not Available Flublok Quad (PF) 180 mcg (45 mcg x 4)/0.5 mL IM syringe [facility] active Not Available Not Available No t Available Vitals Date Recorded Respiratory rate Body temperature Oxygen saturation Oxygen saturation in Arterial blood by Pulse oximetry Heart rate Systolic blood pressure Diastolic blood pressure Provider Name and Address Organization Details Last Updated DateTime 0 20 /min 100.2 [degF] 98 % 98 % 89 /min 110 mm[Hg] 68 mm[Hg] Not Available [facility] 16:17:19 Date Recorded Oxygen saturation Oxygen saturation in Arterial blood by Pulse oximetry Heart rate Respiratory rate Body temperature Systolic blood pressure Diastolic blood pressure Provider Name and Address Organization Details Last Updated DateTime 1 96 % 96 % 94 /min 18 /min 98.5 [degF] 116 mm[Hg] 80 mm[Hg] Not Available [facility] 1 20:37:26 Date Recorded Respiratory rate Heart rate Oxygen saturation Oxygen saturation in Arterial blood by Pulse oximetry Body temperature Systolic blood pressure Diastolic blood pressure Provider Name and Address Organization Details Last Updated DateTime 2 18 /min 79 /min 99 % 99 % 99 [degF] 124 mm[Hg] 82 mm[Hg] Not Available [facility] 2 10:56:03 Social History Question Answer Notes LastModified by Organizat ion Details LastModified Time Tobacco Smoking Status Never Smoker ENRIQUETA CANTU [address] [place], [address], [place] [facility] 10/15/2020 16:20:19 Do You Have An Advance Directive? Yes Information not available 10/15/2020 Excessive Alcohol Or Drug Use No Information not available 10/15/2020 Sex: Unknown Functional Status None recorded. Mental Status None recorded. Family History Relationship Description Onset Age of this Age Resolved Age Notes LastModified by Organization Details LastModified Time Maternal Aunt Diabetes mellitus [email or web address] Not available 2019 16:20:44 Medical History Condition Response Coronary Artery Disease N COPD N Depression Y Diabetes N Cancer N Stroke N Asthma N High Cholesterol N Pulmonary Embolism N Hypertension Y Kidney Disease Y Gynecological HistoryNo gynecological history recorded. Obstetrics History GPAL:G 0 P 0 0 0 0 Immunizations Vaccine Type Date Status Note Provider Nam e and Address Organization Details Recorded Time COVID-19, mRNA, LNP-S, PF, 30 mcg/0.3 mL dose 1 completed NATHAN NORMAN NP [address] [place], [address], [place] [facility] 11/26/2021 10:48:18 Influenza, split virus, quadrivalent, preservative 1 completed NATHAN NORMAN NP [address] [place], [address], [place] [facility] 11/26/2021 10:48:34 Past Encounters Encounter ID Performer Location Encounter Start Date Encounter Closed Date Diagnosis/Indication Diagnosis SNOMED-CT Code Diagnosis ICD10 Code Diagnosis Note [id number] ENRIQUETA CANTU [facility] [address] [place] [address] 10/15/2020 16:09:55 10/15/2020 18:33:00 Acute upper respiratory infection 21332830 J06.9 [id number] MACK MONTILLA NP [facility] [address] [place] [address] 11/24/2020 20:25:31 11/26/2020 19:28:20 Exposure to communicable disease 016405677 Z20.822 Otalgia of left ear 1089 671736 058720 H92.02 Headache 71192719 R51.9 [id number] NATHAN NORMAN, [employer] [address] [place] [address] 11/26/2021 10:15:06 11/27/2021 23:44:55 Viral upper respiratory tract infection 907388109 J06.9 Health Concerns Section Related Observation LastModified by Organization Detai ls LastModified Time None Recorded Concern Status LastModified by Organization Details LastModified Time None Recorded Advance Directives Directive Y: Payers Encounter Date Sequence Insurance Name Policy Number Policy Michaels Covered Member ID Michaels Member ID Guarantor Name 10/15/2020 1 [facility] - DOS PRIOR TO 2023 - DUAL ELIGIBLE (MEDICARE REPLACEMENT/ADV ANTAGE - HMO) Larisa Matus [id number] [facility] [place] 11/24/2020 1 [facility] - DOS PRIOR TO 2023 - DUAL ELIGIBLE (MEDICARE REPLACEMENT/ADV ANTAGE - HMO) Larisa Matusow [id number] Larisa Matusow 11/26/2021 1 [facility] - DOS PRIOR TO 2023 - DUAL ELIGIBLE (MEDICARE REPLACEMENT/ADV ANTAGE - HMO) Larisa Matusow [id number] Larisa Matusow Notes Date Note Type Note Provider Name and Address Organization Details Recorded Time 10/15/2020 text/html 50-year-old femkatia mata with past medical history significant for depression, anxiety, solitary kidney, migraines, seasonal allergies, GERD, overactive bladder, new to [facility], who presents for complaints of low grade fever, headache, chills, nasal congestion and rhinorrhea, productive cough and sinus pain for about 1 week. She had a televisit with her primary care and was prescribed doxycycline, she has 1 dose left and states that she is feeling much better this week. However she would like a COVID test. She has been using [id number] Flonase for sinus congestion as well. She has no known positive exposures or sick contacts. Good PO intake, no appetite change. ENRIQUETA CANTU [address], [place], [address], [place] [facility] 10/15/2020 17:05:22 11/24/2020 text/html This is a 50-year-old female that is known to [email or web address] but new to this provider. She has a medical history significant for migraines, seasonal allergies, depression and has a solitary kidney. She contracts [email or web address] because she has been having some generalized cold symptoms for the past week or so and wants to ensure that she does not have COVID-19. She is also actively being treated for a left ear infection by her PCP. Patient is reporting dry cough, she says it was productive last week. She denies any body aches, no loss of taste or smell. She does have some headaches but has a history of migraines. No fevers or chills. MACK MONTILLA NP [address], [place], [address], [place] [facility] 11/25/2020 10:43:14 11/26/2021 text/html Onset one week Location upper respiratory Duration intermittent Characteristics mild Aggravates/Allevia shawn no known factors NATHAN NORMAN NP [address], [place], [address], [place] [facility] 11/26/2021 14:51:23 OBGyn Episode No OBEpisode recorded.
--- OUTSIDE RECORDS SUMMARY | 2024-12-31 08:03 | XMS_ITS | Clinical Summary ---
Author Organization [facility] Address [address] [place] [address] Phone Care Team Providers Care Mail List Librarian Name Role Phone Eri Smyth NP Primary Care Provider [phone] Allergies Active Allergy Reactions Criticality Noted Date Comments Aspirin Other (see comments) 03/16/2022 Lactose 03/16/2022 Penicillins 03/16/2022 Medications acetaminophen (TYLENOL) 500 MG tablet Take 2 tablets by mouth 3 (three) times a day Active buPROPion SR (WELLBUTRIN SR) 200 MG 12 hr tablet 1 Active cetirizine (ZyrTEC) 10 MG tablet 1 Active D3-1000 25 MCG (1000 UT) tablet 1 Active Diclofenac Sodium 1 % gel 1 Active Banophen 25 MG tablet 1 Active DULoxetine (CYMBALTA) [address] capsule 1 Active FeroSul 325 (65 Fe) MG tablet 1 Active imipramine (TOFRANIL) 10 MG tablet 1 Active loperamide (IMODIUM) 2 MG capsule 1 Active magnesium oxide (MAG-OX) 400 MG tablet magnesium oxide 400 mg (241.3 mg magnesium) tablet Active montelukast (SINGULAIR) 10 MG tablet 1 Active omeprazole (PriLOSEC) [address] capsule Take 1 capsule by mouth 2 (two) times a day Active pantoprazole (PROTONIX) 40 MG EC tablet 1 Active Elmiron 100 MG capsule 1 Active pregabalin (LYRICA) 75 MG capsule 1 Active simethicone (MYLICON,GAS-X) 180 MG capsule 1 Active triamcinolone (KENALOG) 0.1 % cream 1 Active Nasacort Allergy 24HR 55 MCG/ACT nasal inhaler 1 Active ZOLMitriptan (ZOMIG) 5 MG tablet 1 Active zonisamide (ZONEGRAN) 50 MG capsule 1 Active zonisamide (ZONEGRAN) 100 MG capsule zonisamide 100 mg capsule Active sulfamethoxazol e-trimethoprim (BACTRIM,SEPTRA ) 400-80 MG per tablet Take 1 tablet by mouth 1 (one) time each day 90 tablet 5 2 Active losartan (COZAAR) 25 MG tabletIndicatio ns:Hypertension ,Type 2 diabetes mellitus with diabetic chronic kidney disease (HCC) Take 1 tablet (25 mg total) by mouth 1 (one) time each day 90 tablet 3 4 02/15/20 25 Active Active Problems Problem Noted Date Diagnosed Date Anemia 03/16/2022 Blood in urine 03/16/2022 Hormone increase 03/16/2022 Overactive bladder 03/16/2022 Pituitary microadenoma 03/16/2022 Serum creatinine above reference range 2 Severe obesity 03/16/2022 Acute nontraumatic kidney injury 06/17/2021 Chronic interstitial cystitis 06/17/2021 Chronic kidney disease stage 2 06/17/2021 Non-functioning kidney 06/17/2021 Resolved Problems Problem Noted Date Diagnosed Date Resolved Date Depressive disorder 03/16/2022 11/28/19 23 Eczema 03/16/2022 11/28/2022 Fibromyositis 03/16/2022 11/28/2022 Gastroesophageal reflux disease 03/16/2022 11/28/2022 Insomnia 03/16/2022 11/28/2022 Irritable bowel syndrome 03/16/2022 Overview (03/16/2022): constipation type Low back pain 03/16/2022 11/28/2022 Migraine 03/16/2022 11/28/2022 Sleep apnea 03/16/2022 11/28/2022 Unspecified temporomandibula r joint disorder, unspecified side 03/16/2022 11/28/2022 Anxiety 10/15/2020 11/28/2022 Immunizations Name Administration Dates Next Due Influenza Whole 06/26/2012,07/04/2011 Influenza, Quadrivalent, With Preservative 07/13 Pfizer SARS-COV-2 07/13/2021,02/08/2021,01/18/20 Pneumococcal Polysaccharide 02/02/2017 Td, Unspecified 08/06/2006 Tdap 07/01/2018,02/18/2016 Social History Tobacco Use Types Packs/Day Years Used Date Smoking Tobacco: Never Smokeless Tobacco: Never Alcohol Use Standard Drinks/Week Comments No 0 (1 standard drink = 0.6 oz pur e alcohol) Comments Unknown Sex and Gender Information Value Date Recorded Sex Assigned at Not on file Legal Sex Female 4:48 PM EST Gender Identity Not on file Sexual Orientation Not on file Last Filed Vital Signs Vital Sign Reading Time Taken Comments Blood Pressure 116/76 11/13/2023 8:55 AM EST Pulse 87 11/13/2023 8:55 AM EST Temperature - - Respiratory Rate - - Oxygen Saturation 98% 11/13/2023 8:55 AM EST Inhaled Oxygen Concentration - - Weight 102 kg (224 lb 3.2 oz) 11/13/2023 8:55 AM EST Height 167.6 cm (5' 6 ) 03/21/2022 1:07 PM EDT Body Mass Index 36.19 03/21/2022 1:07 PM EDT Plan of Treatment Health Maintenance Due Date Last Done Comments Breast Cancer Screening 1971 Hepatitis B Vaccine (1 of 3 - 19+ 3-dose series) 1990 Pneumococcal Vaccine: Pediat rics (0 to 5 Years) and At-Risk Patients (6 to 64 Years) (2 of 2 - PCV) 02/02/2018 02/02/2017 Colorectal Cancer Screening: Annual FOBT 2020 Colorectal Cancer Screening: Colonoscopy 2020 Colorectal Cancer Screening: Sigmoidoscopy 2020 Diabetes: Hemoglobin A1C 01/10/2022 10/14/2019 Diabetes: Ophthalmology Exam 01/10/2022 Diabetes: Pedal Pulse Checked 01/10/2022 Diabetes: Sensory Foot Exam 01/10/2022 Diabetes: Visual Foot Exam 01/10/2022 Influenza Vaccine (#1) 2024 1, 06/26/2012, 07/04/2011 Procedures Procedure Name Priority Date/Time Associated Diagnosis Comments HEMOGLOBIN A1C Routine 10/14/2019 2:15 PM EST from Last 3 Months or Most Recently Relevant to Health Maintenance Results * Hemoglobin A1c (10/14/2019 2:15 PM EST) Hemoglobin A1C 5.1 (4-6) % [place] [id number] Comment: HEMOGLOBIN A1C(%) ?? GLUCOSE CONTROL INDEX ?<6% ? EXCELLENT ?6-7% ?VERY GOOD ?7-8% ?GOOD ?8-10% ? FAIR ?>10% ?POOR Hemoglobin (Hb) A1c testing is performed by [place]-quant immunoassay. Any cause of shortened erythrocyte survival will reduce exposure of erythrocytes to glucose with a consequent decrease in Hb A1c (%). Testing performed or reported by ~[facility], ~a Service of [facility], ~[address] [place] [id number]~ Adriana Weathers MD, Brand Marketing Manager~ 10/14/2019 2:15 PM EST us Obed Polanco MD LAB BLOOD ORDERABLES Final Re sult [facility] 3 from Last 3 Months or Most Recently Relevant to Health Maintenance Insurance [facility] ([id number]) [place] [address] ([id number]) Care Teams Mail List Librarian Relationship Specialty Start Date End Date Eri Smyth NP [address] [place] [address] PCP - General 11/16/20
[2024-12-31 08:39] VITALS: BP 136/82; PULSE 81; RESP 20; TEMP 36.9; O2SAT 97; BMI 37.1
--- NOTE | 2024-12-31 10:18 | P.CONAN_ITS ---
HPI - Anesthesia Eval Consult details Narrative: 54 yo female patient for colonoscopy [facility] Active Problems Active Problems: All Active Problems Chronic kidney disease (CKD) stage G3b/A1, moderately decreased glomerular filtration rate (GFR) between 30-44 mL/min/1.73 square meter and albuminuria creatinine ratio less than 30 mg/g (Acute) Elevated C-reactive protein (CRP) (Acute) Colitis (Acute) Diarrhea (Acute) Pre-op examination (Acute) Tubular adenoma of colon (Acute) Urinary urgency (Acute) Colon cancer screening (Acute) Hydroureter (Acute) Irritable bowel syndrome with both constipation and diarrhea (Acute) GERD (gastroesophageal reflux disease) (Acute) Urge incontinence of urine (Acute) Abdominal bloating (Acute) Recurrent urinary tract infection (Acute) Interstitial cystitis (Acute) GASTON. Uses CPAP Only 1 kidney functioning Past Medical History Medical History Anxiety and depression PTSD (post-traumatic stress disorder) Migraine Hx of degenerative disc disease GASTON on CPAP IBS (irritable bowel syndrome) Recurrent urinary tract infection Interstitial cystitis GERD (gastroesophageal reflux disease) Urgency incontinence UTI (urinary tract infection) Family History Family History Mother High cholesterol Sister High cholesterol Paternal Aunt Diabetes Paternal Grandmother Bone cancer Paternal Grandfather Cancer Family/Other FH: juvenile onset diabetes mellitus Family history of problems with anesthesia: No Surgical History Surgical History History of cystoscopy History of surgery History of esophagogastroduodenoscopy (EGD) Hx of colonoscopy History of Problems with Anesthesia: No Social History Social History Alcohol intake: current Alcohol intake frequency: does not drink Patient Tobacco Use Status: Never used Tobacco Have you been hit, kicked, punched, or otherwise hurt by someone within the past year? If so, by whom?: No Are you DNR?: No Advance Directives: No Advance Directives Information Provided: Yes Nutrition Risks: No Nutritional Risk Meds Allergies Allergy/AdvReac Type Severity Reaction Status Date / Time aspirin [ASPIRIN] Allergy Intermediate VOMITING Verified 07/16/24 13:28 cephalexin [From Keflex] AdvReac Intermediate Shakiness Verified 12/27/24 11:54 Penicillins [PENICILLINS] AdvReac Intermediate SHAKINESS Verified 07/16/24 13:28 lactose [LACTOSE] AdvReac Unknown SEVERE Verified 07/16/24 13:28 DIARRHEA Home Medications ?Medication ?Instructions ?Recorded ?Confirmed ?Last Taken ?Type azelastine 137 mcg (0.1 %) nasal 1 spray intranasal DAILY 05/07/21 12/27/24 Unknown History spray bupropion HCl 200 mg tablet,12 hr 200 mg PO BID 05/07/21 03/02/23 02/10/23 History sustained-release cetirizine 10 mg tablet 10 mg PO DAILY 05/07/21 12/27/24 08/11/23 History cholecalciferol (vitamin D3) 25 25 mcg PO DAILY 05/07/21 12/27/24 Unknown History mcg (1,000 unit) tablet duloxetine 60 mg capsule,delayed 60 mg PO DAILY 05/07/21 12/27/24 08/11/23 History release ferrous sulfate 325 mg (65 mg 325 mg PO DAILY 05/07/21 12/27/24 02/03/23 History iron) tablet losartan 25 mg tablet 25 mg PO DAILY 05/07/21 12/27/24 02/10/23 History montelukast 10 mg tablet 10 mg PO DAILY 05/07/21 12/27/24 08/11/23 History pregabalin 75 mg capsule 75 mg PO BID 05/07/21 12/27/24 Unknown History zonisamide 50 mg capsule 50 mg PO BEDTIME 05/07/21 12/27/24 Unknown History diphenhydramine HCl 25 mg tablet 25 mg PO BEDTIME 11/30/21 12/27/24 Unknown History (Banophen) medroxyprogesterone 150 mg/mL mg IM 11/30/21 03/02/23 Unknown History intramuscular suspension triamcinolone acetonide 55 mcg 1 spray intranasal DAILY 11/30/21 03/02/23 Unknown History nasal spray aerosol (Nasacort) bupropion HCl 300 mg 24 hr tablet, 300 mg PO DAILY 03/02/23 12/27/24 08/11/23 History extended release galcanezumab-gnlm 120 mg/mL 120 mg subcut QMONTH 04/27/23 02/21/25 Unknown History subcutaneous pen injector (Emgality Pen) Exam Height,Weight and Vital Signs: Height 5 ft 6 in Weight 104.326 kg Last Vital Signs Temp 98.4 F 12/31/24 08:39 Pulse 81 12/31/24 08:39 Resp 20 12/31/24 08:39 BP 136/82 12/31/24 08:39 Pulse Ox 97 12/31/24 08:39 O2 Del Method Room Air 12/31/24 08:39 Airway Mallampati Class: II TM Dist: >3cm Neck ROM: Full Loose/Missing/Broken Teeth: Yes (Edentulous) Heart: RRR Lungs: CTAB Assessment and Plan Assessment Anesthesia Assessment: Anesthesia Plan Discussed and Chart Reviewed Final Anesthetic Review Family History of Problems with Anesthesia: No History of Problems with Anesthesia: No NPO: Yes ASA Class: III Final Preanesthetic Review: No Changes in Pt Med Stat, Meds/Allgs Chart Reviewed, Consent Obtained/Reviewed and Anes Risks/Benef Reviewed Patient Risk: Intermediate Procedure Risk: Low Assessment/Block/Sedation in SS: Assess/Block/Sedation-SS Anesthetic Plan Anesthetic Plan: TIVA Disposition: Standard PACU
--- NOTE | 2024-12-31 10:23 | MHC.SHP ---
Pre-Procedural Eval Section A - 24 Hr Update-Section A only Date of Service: 12/31/24 Section B - Complete if H&P > 30 days Chief Complaint: Hx of polyps Details of Present Illness: GERD (gastroesophageal reflux disease) Interstitial cystitis Urgency incontinence UTI (urinary tract infection) Surgical History History of esophagogastroduodenoscopy (EGD) History of surgery Hx of colonoscopy Present Medications: see Short Stay Collaborative assessment Allergies: Allergies Allergy/AdvReac Type Severity Reaction Status Date / Time aspirin [ASPIRIN] Allergy Intermediate VOMITING Verified 07/16/24 13:28 cephalexin [From Keflex] AdvReac Intermediate Shakiness Verified 12/27/24 11:54 Penicillins [PENICILLINS] AdvReac Intermediate SHAKINESS Verified 07/16/24 13:28 lactose [LACTOSE] AdvReac Unknown SEVERE Verified 07/16/24 13:28 DIARRHEA Review of Systems Review of Systems Comment: 10 point ROS negative Exam Surgical H&P Exam: Normal: HEENT, Normal: Heart, Normal: Lungs, Normal: Extremities, Normal: Abdomen, Normal: Skin and Normal: Neurological Plan Diagnosis/Plan: Unchanged I have reviewed the history and physical and performed a pertinent physical examination on my patient. No changes have occurred unless specified. Time Spent With Patient Time: Total time managing care of this patient today ____ minutes.
[2024-12-31] MEDS: Lactated Ringers 1,000 ML 100 ML IVCONT (10:47)
--- NOTE | 2024-12-31 12:06 | P.OPN-COLO_ITS ---
Colonoscopy Operative Note Operative Note Date of Service: 12/31/24 Narrative: Procedure: Colonoscopy Indication: Personal history of polyps Endoscopist: Naa Alvarez MD Anesthesia Provider: Dr Marii Diaz Anesthesia type: MAC Instrument: Olympus [id number]-H190L Consent: Indication, risks vs benefits, and alternatives were discussed with the patient who gave written informed consent to proceed. EKG, pulse, pulse oximetry and blood pressure were monitored throughout the procedure. Please see anesthesia flowsheet. Procedure: The patient was brought to the procedure room and an abdominal binder was affixed and she was then placed in the left lateral decubitus position. IV medications were administered by the anesthesia provider in attendance. A digital rectal exam was performed which was abnormal due to finding of hemorrhoids. A distal attachment cap was affixed to the tip of the colonoscope which was then inserted through the anus and advanced through the colon to the cecum at 75 cm,and terminal ileum. Appendiceal orifice and ileocecal valve were identified. Mucosa was carefully examined under high definition white light as the instrument was slowly withdrawn in a retrograde panoramic fashion. Retroflexion was performed in ascending colon and rectum. The procedure was not difficult. There were no immediate obvious complications. The quality of the prep was BBPS: 3+2+3 = adequate Withdrawal time 21 minutes. Limitations: No limitations. Findings: Mucosa: Normal to cecum and terminal ileum. Protruding lesions: * 2 sessile polyps of size 2-5 mm in cecum. Cold snare polypectomy was performed. The polyps were completely removed and retrieved. * 6 sessile polyp of size 2-6 mm in transverse colon. Cold snare polypectomy was performed. The polyps were completely removed and retrieved. * 3 sessile polyp of size 2-7 mm in descending colon. Cold snare polypectomy was performed. The polyps were completely removed and retrieved. * Medium internal hemorrhoids without stigmata of recent bleeding. Impression: 1. Normal colon and terminal ileum mucosa 2. Total of 11 polyps removed 3. External and internal hemorrhoids Recommendations: - Follow path results. - Repeat colonoscopy in 1 year - Pt will also be set up for genetic testing for polyposis if not done already
[2024-12-31 12:08] VITALS: BP 92/73; PULSE 64; RESP 14; TEMP 37.2; O2SAT 100
[2024-12-31 12:25] VITALS: BP 128/48; PULSE 64; RESP 17; TEMP 36.7; O2SAT 100
== END 2024-12-31 12:55 | disposition home or self-care (01) ==
PROVIDERS: PCP Student in an Organized Health Care Education/Training Program; Visit Provider Internal Medicine
PROC: 0DJD8ZZ Inspection of Lower Intestinal Tract, Via Natural or Artificial Opening Endoscopic (ICD-10-PCS; CPT 45378; principal; 2024-12-31 10:50)
DX: Z12.11 Encounter for screening for malignant neoplasm of colon (principal); D12.3 Benign neoplasm of transverse colon; D12.0 Benign neoplasm of cecum; D12.4 Benign neoplasm of descending colon; K64.8 Other hemorrhoids; K64.4 Residual hemorrhoidal skin tags; Z86.0101 Personal history of adenomatous and serrated colon polyps; K52.9 Noninfective gastroenteritis and colitis, unspecified; N18.32 Chronic kidney disease, stage 3b; G47.33 Obstructive sleep apnea (adult) (pediatric); Z99.89 Dependence on other enabling machines and devices; Z87.440 Personal history of urinary (tract) infections
CPT/HCPCS: 45385; 88305; J2003; J2704

== ENCOUNTER → 2024-12-31 08:02 | Outpatient (BNV) | payer OTHER, SELFPAY | PROVIDERS: PCP Student in an Organized Health Care Education/Training Program; Visit Provider Internal Medicine | DX: Z12.11 Encounter for screening for malignant neoplasm of colon (principal); Z86.0100 Personal history of colon polyps, unspecified; D12.3 Benign neoplasm of transverse colon; D12.0 Benign neoplasm of cecum; D12.4 Benign neoplasm of descending colon; K52.9 Noninfective gastroenteritis and colitis, unspecified | CPT/HCPCS: 45385 ==

== ENCOUNTER 2025-01-12 08:03 | Emergency (ER) | payer OTHER, SELFPAY ==
--- NOTE | ~2025-01-12 | XR_ITS ---
CLINICAL HISTORY: fall 4 view, chest and left ribs Comparison: None Findings: Bones intact. No dislocations. The visualized lungs are normal. Cardiac and mediastinal contours are within normal limits. No pneumothorax. IMPRESSION: 1. No acute fractures. 2. No pneumothorax This document has been electronically signed by: Kal Murray MD on 01/12/2025 09:34:06
--- NOTE | ~2025-01-12 | XR_ITS ---
CLINICAL HISTORY: fall 4 view right knee Comparison: None Findings: No fractures or dislocations. No significant arthritic change or erosions. No joint effusion. No radiopaque foreign body. IMPRESSION: 1. No acute findings. This document has been electronically signed by: Kal Murray MD on 01/12/2025 09:41:08
[2025-01-12 08:06] VITALS: BP 151/68; PULSE 79; RESP 20; TEMP 36.6; O2SAT 100; BMI 37.8
--- NOTE | 2025-01-12 08:29 | ED_ITS ---
HPI - Fall General Chief Complaint: Fall Stated Complaint: fall Time Seen by Provider: 01/12/25 08:29 Source: patient and old records reviewed Mode of arrival: ambulatory Limitations: no limitations History of Present Illness ED Provider: HORTENSIA HPI Narrative: 54 yo female with PMH of CKD, colitis, IBS, GERD, UTI, HTN, not on blood thinners here with c/o trip and fall over curb while walking on . She scraped her R knee, she hit her L ribs. She had no headstrike or LOC. She states her L ribs hurt to move and it is painful to take deep breaths. She is able to walk and feels like her R knee is not that bad. She has no headache, numbness, weakness. MD complaint: fall Onset (ago): day(s) () Fall from: standing Fall witnessed: no Place fall occurred: street Loss of consciousness: none Prolonged down time: no Symptoms prior to fall: none Context: tripped/slipped Location of injury: chest Location of injury - extremities: right: knee Severity: moderate Quality: sharp Associated symptoms (after fall): other (hurts to take a deep breath and move ) Related Data Home Medications ?Medication ?Instructions ?Recorded ?Confirmed azelastine 137 mcg (0.1 %) nasal 1 spray intranasal DAILY 05/07/21 12/27/24 spray bupropion HCl 200 mg tablet,12 hr 200 mg PO BID 05/07/21 03/02/23 sustained-release cetirizine 10 mg tablet 10 mg PO DAILY 05/07/21 12/27/24 cholecalciferol (vitamin D3) 25 25 mcg PO DAILY 05/07/21 12/27/24 mcg (1,000 unit) tablet duloxetine 60 mg capsule,delayed 60 mg PO DAILY 05/07/21 12/27/24 release ferrous sulfate 325 mg (65 mg 325 mg PO DAILY 05/07/21 12/27/24 iron) tablet losartan 25 mg tablet 25 mg PO DAILY 05/07/21 12/27/24 montelukast 10 mg tablet 10 mg PO DAILY 05/07/21 12/27/24 pregabalin 75 mg capsule 75 mg PO BID 05/07/21 12/27/24 zonisamide 50 mg capsule 50 mg PO BEDTIME 05/07/21 12/27/24 diphenhydramine HCl 25 mg tablet 25 mg PO BEDTIME 11/30/21 12/27/24 (Banophen) medroxyprogesterone 150 mg/mL mg IM 11/30/21 03/02/23 intramuscular suspension triamcinolone acetonide 55 mcg 1 spray intranasal DAILY 11/30/21 03/02/23 nasal spray aerosol (Nasacort) bupropion HCl 300 mg 24 hr tablet, 300 mg PO DAILY 03/02/23 12/27/24 extended release galcanezumab-gnlm 120 mg/mL 120 mg subcut QMONTH 03/02/23 12/27/24 subcutaneous pen injector (Emgality Pen) Previous Rx's ?Medication ?Instructions ?Recorded dicyclomine 20 mg tablet 20 mg PO QID #112 tabs 02/28/23 loperamide 2 mg capsule 2 mg PO QID PRN for diarrhea #112 01/31/24 caps bisacodyl 5 mg tablet,delayed 10 mg (2 x 5 mg) PO BEDTIME 2 days 06/18/24 release (Dulcolax (bisacodyl)) #4 tabs peg 3350-electrolytes 236 240 ml PO Q10M 1 day #4,000 mL 06/18/24 gram-22.74 gram-6.74 gram-5.86 gram solution (Golytely) pantoprazole 40 mg tablet,delayed 40 mg PO BID #56 tabs 07/01/24 release pentosan polysulfate sodium 100 mg 100 mg PO BID 90 days #180 caps 07/16/24 capsule (Elmiron) tamsulosin 0.4 mg capsule 0.4 mg PO BEDTIME 90 days #90 caps 07/16/24 simethicone 180 mg capsule 180 mg PO QID PRN for abdominal 12/24/24 pain #56 caps cyclobenzaprine 10 mg tablet 10 mg PO TID PRN muscle spasm #14 01/12/25 tabs lidocaine 5 % topical patch 1 patch topical DAILY #30 ea 01/12/25 Allergies Allergy/AdvReac Type Severity Reaction Status Date / Time aspirin [ASPIRIN] Allergy Intermediate VOMITING Verified 01/12/25 08:09 cephalexin [From Keflex] AdvReac Intermediate Shakiness Verified 01/12/25 08:09 Penicillins [PENICILLINS] AdvReac Intermediate SHAKINESS Verified 01/12/25 08:09 lactose [LACTOSE] AdvReac Unknown SEVERE Verified 01/12/25 08:09 DIARRHEA Review of Systems Review of Systems: Constitutional : No Fever, No Chills ENT/Mouth : No Ear Pain, No Hoarseness, No sore throat Eyes: No Eye Pain, No Swelling, No Redness, No Foreign Body Cardiovascular : No Chest Pain, No SOB, pos rib pain Respiratory : No Cough, No Dyspnea Gastrointestinal : No Nausea, No Vomiting, No Diarrhea, No abdominal Pain Genitourinary : No Dysuria, No Hematuria Musculoskeletal : positive joint pain, No Myalgias, No Joint Swelling Skin : No Skin lacerations, No rash, pos abrasion Neuro : No Weakness, No Numbness, No Loss of Consciousness, No Dizziness, No Headache All other systems reviewed and are negative [facility] Past Medical History Attestation statement: The following information was validated with the patient. Source: old records reviewed Medical History Anxiety and depression PTSD (post-traumatic stress disorder) Migraine Hx of degenerative disc disease GASTON on CPAP IBS (irritable bowel syndrome) Recurrent urinary tract infection Interstitial cystitis GERD (gastroesophageal reflux disease) Urgency incontinence UTI (urinary tract infection) Surgical History History of cystoscopy History of surgery History of esophagogastroduodenoscopy (EGD) Hx of colonoscopy Family History Family History Mother High cholesterol Sister High cholesterol Paternal Aunt Diabetes Paternal Grandmother Bone cancer Paternal Grandfather Cancer Family/Other FH: juvenile onset diabetes mellitus Social History Social History Alcohol intake: current Alcohol intake frequency: does not drink Patient Tobacco Use Status: Never used Tobacco Advance Directives: Yes Advance Directives Information Provided: No Advance Directives on File: No Do you have a plan to hurt others: No Plan Physical Exam Vital Signs: Vital Signs: Last Vital Signs Temp 97.9 F 01/12/25 08:06 Pulse 79 01/12/25 08:06 Resp 20 01/12/25 08:06 BP 151/68 H 01/12/25 08:06 Pulse Ox 100 01/12/25 08:06 O2 Del Method Room Air 01/12/25 08:06 BMI result Body Mass Index 37.8 Appearance: Alert. Oriented X3. No acute distress. Eyes: Pupils equal, round and reactive to light. ENT: Pharynx normal. atraumatic Neck: Normal inspection. Neck supple. CVS: Normal heart rate and rhythm. Pulses normal. Chest wall: ttp along anterolateral lateral ribs no deformity or crepitus felt no signs of ext trauma noted Respiratory: No respiratory distress. Breath sounds normal. Abdomen: Soft and non-tender. NO LUQ pain or ttp Skin: Skin warm and dry. Normal skin color. Extremities: No lower extremity edema. R knee normal range of motion, distal NV intact, quad tendon intact no issues flexing or extending, no divot felt in quad tendon, superficial abrasion on patella noted - no infection Neuro: Oriented X 3. No motor deficit. No sensory deficit. CN2-12 intact Medications Administered Discontinued Medications Generic Name Dose Route Start Last Admin Trade Name Freq PRN Reason Stop Dose Admin Acetaminophen 975 mg 01/12/25 08:37 01/12/25 08:58 Acetaminophen 325 Mg Tablet PO 01/12/25 08:38 975 mg ONCE ONE Administration Cyclobenzaprine HCl 5 mg 01/12/25 08:38 01/12/25 08:57 Cyclobenzaprine Hcl 5 Mg Tablet PO 01/12/25 08:39 5 mg ONCE ONE Administration Lidocaine 1 patch 01/12/25 08:37 01/12/25 08:58 Lidocaine 4 % Patch Adh..Patch TRANSDERMA 01/12/25 08:38 1 patch ONCE ONE Administration Protocol Medical Decision Making Medical Decision Making MDM Narrative: 54 yo female with PMH of CKD, colitis, IBS, GERD, UTI, HTN here with c/o trip and fall no headstrike or LOC at this time she is not toxic and has no abdominal ttp - she has normal ROM of R knee mild abrasion no infection at this time the patient will need R knee xray, L rib xray. Start on pain control and lidocaine patches Differential Diagnosis Differential Diagnoses: The differential diagnosis associated with the presentation includes contusion, sprain, rib fracture Admission/Observation Consideration of admission/observation: Escalation of care including admission/observation considered not toxic, no PTX seen on CXR stable for outpatient management Independent Interpretation I performed an independent interpretation of an: Plain X-Ray (no PTX, no trauma seen) Radiology Impression Discussion of test interpretation with radiology: I have reviewed the radiologist's reading. External Record Review External record reviewed: Outpatient record Prescription Management I considered prescription management with: Pain Medication and Other Discharge Plan Discharge Clinical Impression: Contusion of knee, right, Contusion of rib on left side Patient Disposition: Home, Self-Care Instructions: Contusion in Adults (ED), Rib Contusion (ED) Additional Instructions: no broken bones seen on xray take deep breaths frequently while at rest, return for any worsening symptoms or concerns such as bloody cough, fevers, increased trouble breathing or any other concerns limit lifting to 10lbs for 2 weeks. CLINICAL HISTORY: fall 4 view, chest and left ribs Comparison: None Findings: Bones intact. No dislocations. The visualized lungs are normal. Cardiac and mediastinal contours are within normal limits. No pneumothorax. IMPRESSION: 1. No acute fractures. 2. No pneumothorax CLINICAL HISTORY: fall 4 view right knee Comparison: None Findings: No fractures or dislocations. No significant arthritic change or erosions. No joint effusion. No radiopaque foreign body. IMPRESSION: 1. No acute findings. Prescriptions: New cyclobenzaprine 10 mg tablet 10 mg PO TID PRN (Reason: muscle spasm) Qty: 14 0RF lidocaine 5 % adhesive patch,medicated 1 patch topical DAILY Qty: 30 0RF Rx Instructions: leave on most painful area for up to 12 hrs No Action loperamide 2 mg capsule 2 mg PO QID PRN (Reason: for diarrhea) Qty: 112 0RF pantoprazole 40 mg tablet,delayed release (DR/EC) 40 mg PO BID Qty: 56 6RF simethicone 180 mg capsule 180 mg PO QID PRN (Reason: for abdominal pain) Qty: 56 0RF cholecalciferol (vitamin D3) 25 mcg (1,000 unit) tablet 25 mcg PO DAILY pregabalin 75 mg capsule 75 mg PO BID ferrous sulfate 325 mg (65 mg iron) tablet 325 mg PO DAILY duloxetine 60 mg capsule,delayed release(DR/EC) 60 mg PO DAILY bupropion HCl 200 mg tablet sustained-release 12 hr 200 mg PO BID zonisamide 50 mg capsule 50 mg PO BEDTIME montelukast 10 mg tablet 10 mg PO DAILY cetirizine 10 mg tablet 10 mg PO DAILY azelastine 137 mcg (0.1 %) aerosol,spray 1 spray intranasal DAILY losartan 25 mg tablet 25 mg PO DAILY medroxyprogesterone 150 mg/mL suspension IM triamcinolone acetonide [Nasacort] 55 mcg aerosol,spray 1 spray intranasal DAILY diphenhydramine HCl [Banophen] 25 mg tablet 25 mg PO BEDTIME dicyclomine 20 mg tablet 20 mg PO QID Qty: 112 6RF Emgality Pen 120 mg/mL pen injector 120 mg subcut QMONTH bupropion HCl 300 mg tablet extended release 24 hr 300 mg PO DAILY peg 3350-electrolytes [Golytely] 236-22.74-6.74 -5.86 gram recon soln 240 ml PO Q10M 1 Days Qty: 4000 0RF Rx Instructions: until fecal effluent is clear; do not exceed a total volume of 2,000 mL bisacodyl [Dulcolax (bisacodyl)] 5 mg tablet,delayed release (DR/EC) 10 mg PO BEDTIME 2 Days Qty: 4 0RF tamsulosin 0.4 mg capsule 0.4 mg PO BEDTIME 90 Days Qty: 90 3RF Elmiron 100 mg capsule 100 mg PO BID 90 Days Qty: 180 1RF Print Language: [place]
[2025-01-12] MEDS: Cyclobenzaprine HCl 5 MG TABLET PO (08:57)
[2025-01-12] MEDS: Lidocaine 4 % Patch ADH..PATCH 1 PATCH TRANSDERMA (08:58)
[2025-01-12] MEDS: Acetaminophen 325 MG TABLET 975 MG PO (08:58)
[2025-01-12 10:11] VITALS: BP 121/71; PULSE 71; RESP 20; TEMP 36.9; O2SAT 99
[2025-01-12 10:13] VITALS: BP 121/71; PULSE 71; RESP 20; TEMP 36.9; O2SAT 99
== END 2025-01-12 10:14 | disposition home or self-care (01) ==
PROVIDERS: Emergency Provider Emergency Medicine
DX: S80.01XA Contusion of right knee, initial encounter (principal); S20.212A Contusion of left front wall of thorax, initial encounter; R07.81 Pleurodynia; M25.561 Pain in right knee; W01.0XXA Fall on same level from slipping, tripping and stumbling without subsequent striking against object, initial encounter; Y93.01 Activity, walking, marching and hiking; Y92.480 Sidewalk as the place of occurrence of the external cause; Y99.8 Other external cause status
CPT/HCPCS: 71101; 73564; 99283; 99284

== ENCOUNTER → 2025-01-12 08:10 | Outpatient (BNV) | payer OTHER, SELFPAY | PROVIDERS: Emergency Provider Emergency Medicine; Visit Provider Radiology Vascular & Interventional Radiology | DX: S20.20XA Contusion of thorax, unspecified, initial encounter (principal); S80.01XA Contusion of right knee, initial encounter; W19.XXXA Unspecified fall, initial encounter | CPT/HCPCS: 71101; 73564 ==

== ENCOUNTER 2025-01-28 12:38 | Outpatient (AMB) | payer OTHER, SELFPAY ==
[2025-01-28 12:48] VITALS: BP 123/77; BMI 38.6
--- NOTE | 2025-01-28 12:48 | A.OFFVIS_ITS ---
Vital Signs 01/28/25 12:48 Height 5 ft 6 in Weight 239 lb BMI 38.6 BP 123/77 Blood Pressure Location Rt brachial Position Sitting Intake Visit Reasons: s/p colonoscopy Intake Note: Patient in office today in follow up s/p colonoscopy. CC: Patient states that she could not have stool test done because he fracture her ankle the same day of her last visit today. She continues to c/o nausea, abdominal pain/bloating, GERD, and diarrhea alternating with constipation. 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 Accompanied by: Self / Same As Patient Allergies aspirin [ASPIRIN] Allergy (Intermediate, Verified 01/28/25 13:00) VOMITING cephalexin [From Keflex] Adverse Reaction (Intermediate, Verified 01/28/25 13:00) Shakiness Penicillins [PENICILLINS] Adverse Reaction (Intermediate, Verified 01/28/25 13:00) SHAKINESS lactose [LACTOSE] Adverse Reaction (Unknown, Verified 01/28/25 13:00) SEVERE DIARRHEA HPI HPI s/p colonoscopy: Details: Assessment & Plan (1) Tubular adenoma of colon: Comment: 02/2023 scope= multiple large polyps repeat in 6 months Code(s): D12.6 - Benign neoplasm of colon, unspecified Category: Medical (2) Pre-op examination: Code(s): Z01.818 - Encounter for other preprocedural examination Category: Medical (3) Diarrhea: Code(s): R19.7 - Diarrhea, unspecified Category: Medical (4) Colitis: Code(s): K52.9 - Noninfective gastroenteritis and colitis, unspecified Category: Medical (5) Elevated C-reactive protein (CRP): Code(s): R79.82 - Elevated C-reactive protein (CRP) Category: Medical Plan Pt has been lost to follow up since 02/2023 Her last colonoscopy was 08/2023 and at that time she still had quite large polyps removed which necessitated another 1 year recall. At that time she had 28 polyps removed over the [place] 6 months. She is aware that she has due for another colonoscopy because of this is agreeable to it scheduled. She was not aware of the finding of colitis because she never came back to see me and how this is likely impacting her ongoing diarrhea and fecal incontinence. Since the biopsy was not completely conclusive we need some other testing to make sure we get the right diagnosis and treat her accordingly. Once I explained this to her and we uncover her troubles with transportation (and I advised her that are transportation service likely can help her since she lives in [place]) she is agreeable to try to get some stool testing and additional blood testing. She has GASTON and denies any other respiratory or cardiac problems. There are no prior problems with anesthesia or sedation. No ID problems Her diarrhea and fecal accidents continue. She has severe transportation problems to get the stool samples returned. Give # for tranportation services. She DOES have some formed stools but with severely elevated CRP in past and colitis on biopsy last scope unsure if this is an element of exacerbation and remission of IBD. ROV 8 weeks. Orders: Orders Colonoscopy - GI Use Only Today D12.6 - Benign neoplasm of colon, unspecified, K52.9 - Noninfective gastroenteritis and colitis, unspecified, R19.7 - Diarrhea, unspecified, R79.82 - Elevated C-reactive protein (CRP), Z01.818 - Encounter for other preprocedural examination C Reactive Protein Today D12.6 - Benign neoplasm of colon, unspecified, K52.9 - Noninfective gastroenteritis and colitis, unspecified, R19.7 - Diarrhea, unspecified, R79.82 - Elevated C-reactive protein (CRP), Z01.818 - Encounter for other preprocedural examination [facility] SGI Today D12.6 - Benign neoplasm of colon, unspecified, K52.9 - Noninfective gastroenteritis and colitis, unspecified, R19.7 - Diarrhea, unspecified, R79.82 - Elevated C-reactive protein (CRP), Z01.818 - Encounter for other preprocedural examination Comprehensive Met. Panel Today D12.6 - Benign neoplasm of colon, unspecified, K52.9 - Noninfective gastroenteritis and colitis, unspecified, R19.7 - Diarrhea, unspecified, R79.82 - Elevated C-reactive protein (CRP), Z01.818 - Encounter for other preprocedural examination Complete Blood Count Auto Diff Today D12.6 - Benign neoplasm of colon, unspecified, K52.9 - Noninfective gastroenteritis and colitis, unspecified, R19.7 - Diarrhea, unspecified, R79.82 - Elevated C-reactive protein (CRP), Z01.818 - Encounter for other preprocedural examination Calprotectin, Fecal Today D12.6 - Benign neoplasm of colon, unspecified, K52.9 - Noninfective gastroenteritis and colitis, unspecified, R19.7 - Diarrhea, unspecified, R79.82 - Elevated C-reactive protein (CRP), Z01.818 - Encounter for other preprocedural examination Rast Allergen Today D12.6 - Benign neoplasm of colon, unspecified, K52.9 - Noninfective gastroenteritis and colitis, unspecified, R19.7 - Diarrhea, unspecified, R79.82 - Elevated C-reactive protein (CRP), Z01.818 - Encounter for other preprocedural examination Medications: New peg 3350-electrolytes 236-22.74-6.74 -5.86 gram (Golytely) until fecal effluent is clear; do not exceed a total volume of 2,000 mL 240 mL PO Q10M 4,000 mL 0RF 1 day Z12.11 - Encounter for screening for malignant neoplasm of colon bisacodyl (Dulcolax (bisacodyl)) 10 mg (2 x 5 mg) PO BEDTIME 4 tabs 0RF 2 days Labs: Laboratory Tests 06/18/24 13:41 C-Reactive Protein 1.53 H The [facility] study appears to be canceled saying it had been ordered previously but I have no record of this in our charts COLONOSCOPY 12/31/24 Findings: Mucosa: Normal to cecum and terminal ileum. Protruding lesions: * 2 sessile polyps of size 2-5 mm in cecum. Cold snare polypectomy was perform ed. The polyps were completely removed and retrieved. * 6 sessile polyp of size 2-6 mm in transverse colon. Cold snare polypectomy was performed. The polyps were completely removed and retrieved. * 3 sessile polyp of size 2-7 mm in descending colon. Cold snare polypectomy was performed. The polyps were completely removed and retrieved. * Medium internal hemorrhoids without stigmata of recent bleeding. Impression: 1. Normal colon and terminal ileum mucosa 2. Total of 11 polyps removed 3. External and internal hemorrhoids Recommendations: - Follow path results. - Repeat colonoscopy in 1 year - Pt will also be set up for genetic testing for polyposis if not done already BIOPSY Received: 12/31/24 Diagnosis A. Colon, transverse, polyps: Tubular adenomas (multiple pieces); negative for high-grade dysplasia and carcinoma. B. Colon, cecal polyps: Tubular adenomas (2 pieces); negative for high-grade dysplasia and carcinoma. C. Colon, descending, polyps: Tubular adenomas (multiple pieces); negative for high-grade dysplasia and carcinoma. TODAY'S VISIT (Her last colonoscopy was 08/2023 and at that time she still had quite large polyps removed which necessitated another 1 year recall. At that time she had 28 polyps removed over the [place] 6 months.) She broke her ankle stepping wrong on stairs and had a tri maleolar fracture! She had surgery and had to go to rehab. She has been falling recently r/t her neuropathy which effects her coordination - she also recently hurt her ribs! She struggles with her bowels going back and forth between bouts of severe diarrhea and bouts of constipation. Right now she is in a constipation phase. I was somewhat concerned given the number of polyps and the elevated CRP that she may have IBD and I am not sure why the [facility] test was not run, however she has never had any biopsy evidence of IBD so I think we will treat this as IBS-M. We discussed the importance of fiber and how you need to take it for both the diarrheal and the constipation phase and how it works. She will start on Metamucil and I think her insurance may cover the capsule so I will send this to the pharmacy. She continues on her pantoprazole and simethicone. She did not find the bentyl helpful for her diarrhea and she only has cramping during the diarrheal phase. ROV 6 mos. [facility] Medical History Anxiety and depression PTSD (post-traumatic stress disorder) Migraine Hx of degenerative disc disease GASTON on CPAP IBS (irritable bowel syndrome) Recurrent urinary tract infection Interstitial cystitis GERD (gastroesophageal reflux disease) Urgency incontinence UTI (urinary tract infection) Surgical History History of cystoscopy History of surgery History of esophagogastroduodenoscopy (EGD) Hx of colonoscopy Family History Mother High cholesterol Sister High cholesterol Paternal Aunt Diabetes Paternal Grandmother Bone cancer Paternal Grandfather Cancer Family/Other FH: juvenile onset diabetes mellitus Social History Alcohol intake: current Alcohol intake frequency: does not drink Patient Tobacco Use Status: Never used Tobacco Review of Systems Const Denies fatigue, Denies fever(s), Denies night sweats, Denies poor appetite and Denies weight loss Eyes Details: glasses Reports requires corrective lenses ENT Reports Normal hearing present, Denies dental pain, Denies dysphagia, Denies hearing loss, Denies mouth pain, Denies odynophagia, Denies throat swelling, Denies tongue swelling and Reports other (Dentition adequate) Card Reports no additional complaints Resp Reports no additional complaints GI Details: Denies abdominal pain, Denies melena, Reports bloating, Denies hematochezia, Re ports constipation, Reports GI cramping, Denies dysphagia, Denies excessive flatus, Denies early satiety, Reports heartburn, Reports diarrhea, Denies nausea, Denies odynophagia, Denies vomiting and Denies hematemesis Skin/Breast Denies pruritus, Denies lesions, Denies rash and Denies jaundice Neuro Reports Normal hearing present and Denies Abnormal speech present Endo Denies fatigue Aller/Immun Denies throat swelling and Denies tongue swelling Physical Exam Const General: cooperative, no acute distress, well developed and well groomed Nutritional Appearance: well nourished and obese Orientation/consciousness: oriented to person, oriented to place and oriented to time Limitations: No language barrier HEENT Head: Yes normocephalic and Yes atraumatic Eyes General: appearance normal, both eyes and all related structures Pupils: Equal, round and reactive pupils present Neck Neck: Yes normal visual inspection and Yes no lymphadenopathy Thyroid: Thyroid normal Resp Effort & Inspection: normal respiratory effort and able to speak in complete sentences Auscultation: clear to auscultation bilaterally Cardio Rate: regular rate Rhythm: regular rhythm Heart sounds: Normal, physiologic split S2 sound present Peripheral pulses: radial pulses present and posterior tibial pulses present GI Inspection: No distended, No Abdominal panniculus present and Yes obesity Palpation (GI): Soft to palpation, nontender, no guarding, not rigid and No hepatosplenomegaly present Percussion: Yes normal to percussion Auscultation: normal bowel sounds Rectal Exam - Female: deferred Skin General skin exam: no rashes or lesions noted, turgor normal, skin not dry, no jaundice, No spider nevi and no striae Rashes: no rashes Nails: normal Neuro General: oriented to person, oriented to place and oriented to time Cranial nerves: Yes Equal, round and reactive pupils present and Yes Normal hearing present Speech: No Abnormal speech present Extrem General: Yes normal to inspection, No clubbing, No cyanosis and No edema Psych Appearance: grossly normal and well kempt Mental Status: mental status grossly normal Speech and movement: Normal speech and movement present Affect: normal affect Attitude: cooperative Thought process: Normal thought process present and not confabulating Thought content: Normal thought content present Insight: Fair insight present (Psych) Judgement: Fair judgement present (Psych) Assessment & Plan Assessment & Plan (1) Tubular adenoma of colon: Comment: 02/2023 scope= multiple large polyps repeat in 6 months Code(s): D12.6 - Benign neoplasm of colon, unspecified Category: Medical (2) GERD (gastroesophageal reflux disease): Code(s): K21.9 - Gastro-esophageal reflux disease without esophagitis Category: Medical (3) Elevated C-reactive protein (CRP): Code(s): R79.82 - Elevated C-reactive protein (CRP) Category: Medical (4) Irritable bowel syndrome with both constipation and diarrhea: Code(s): K58.2 - Mixed irritable bowel syndrome Category: Medical Plan (Her last colonoscopy was 08/2023 and at that time she still had quite large polyps removed which necessitated another 1 year recall. At that time she had 28 polyps removed over the [place] 6 months.) She broke her ankle stepping wrong on stairs and had a tri maleolar fracture! She had surgery and had to go to rehab. She has been falling recently r/t her neuropathy which effects her coordination - she also recently hurt her ribs! She struggles with her bowels going back and forth between bouts of severe diarrhea and bouts of constipation. Right now she is in a constipation phase. I was somewhat concerned given the number of polyps and the elevated CRP that denise pate may have IBD and I am not sure why the [facility] test was not run, however she has never had any biopsy evidence of IBD so I think we will treat this as IBS-M. We discussed the importance of fiber and how you need to take it for both the diarrheal and the constipation phase and how it works. She will start on Metamucil and I think her insurance may cover the capsule so I will send this to the pharmacy. She continues on her pantoprazole and simethicone. She did not find the bentyl helpful for her diarrhea and she only has cramping during the diarrheal phase. ROV 6 mos. Medications: New psyllium husk (Metamucil) 0.8 grams (2 x 0.4 gram) PO BID 120 caps 11RF K58.2 - Mixed irritable bowel syndrome Refilled loperamide 2 mg PO QID PRN 112 caps 0RF for diarrhea K58.2 - Mixed irritable bowel syndrome pantoprazole 40 mg PO BID 56 tabs 6RF K21.9 - Gastro-esophageal reflux disease without esophagitis simethicone (Gas Relief Ultra Strength) 180 mg PO QID PRN 56 caps 11RF for abdominal pain R14.0 - Abdominal distension (gaseous) Discontinued dicyclomine Discontinued Reason: Doctor's Order 20 mg PO QID 112 tabs 6RF K58.2 - Mixed irritable bowel syndrome bisacodyl (Dulcolax (bisacodyl)) Discontinued Reason: Patient Completed Course 10 mg (2 x 5 mg) PO BEDTIME 2 days 4 tabs 0RF Coding Level of Care Code Est Pt Level 4 (09424) Diagnoses Tubular adenoma of colon D12.6 GERD (gastroesophageal reflux disease) K21.9 Elevated C-reactive protein (CRP) R79.82 Irritable bowel syndrome with both constipation and diarrhea K58.2 Time Spent (min) 37
--- OUTSIDE RECORDS SUMMARY | 2025-01-28 15:24 | XMS_ITS | Data Portability ---
Author Organization [place] - [facility] FACILITY Address [address] [place] [id number] Care Team Providers Care Inspector Health Care Facilities Name Role Phone CAR LUI Primary Care Provider Assessment Encounter Date Assessment Date Assessment LastModified by Organization Details LastModified Time 10/15/2020 10/15/2020 Overview/History : 50-year-old female with past medical history significant for depression, anxiety, solitary kidney, migraines, seasonal allergies, GERD, overactive bladder, new to [facility], who presents for complaints of low grade fever, headache, chills, nasal congestion and rhinorrhea, productive cough and sinus pain for about 1 week. She had a televisit with her primary care and was prescribed doxycycline, she has 1 dose left and states that she is feeling much better this week. However she would like a COVID test. She has been using yolo-ffn-yfvxowe Flonase for sinus congestion as well. She [...] sxs. Thank you for your visit with [facility] today. We cannot always find the exact [...] in your condition between 8am-10pm, please call [facility] at [phone] to help navigate your care. Proper Personal Protective Equipment (PPE), including gloves, eye protection, N95 mask, gown, and shoe covers were donned and doffed appropriately and all equipment cleaned using approved technique with germicidal disposable wipes prior to and after care of this patient according to [facility]'s infection prevention protocols. [email or web address] Not available 10/15/2020 17:04:37 11/24/2020 11/24/2020 Overview/History :T is a 50-year-old female that is known to [facility] units provider. She contacted [facility] as she has been having dry cough [...] develop 1. She should continue to take hpcj-jsv-fdceuno cough syrup to use for cough at night. She verbalized understanding of discharge instructions as well as emergency room precautions. In order to obtain further information and compare any laboratory results/values, I have accessed old patient records. This information was pertinent in my medical decision making today. Time On Scene with Patient: 00:20:00 [email or web address] Not available 11/25/2020 10:43:07 11/26/2021 11/26/2021 Overview/History [...] today. Time On Scene with Patient: 00:25:40 [email or web address] Not available 11/26/2021 14:51:01 Plan of Treatment Reminders Order Date Submit Date Provider Last Modified By Organization Details Last Modified Time Details Appointments None recorded. 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 Procedures None recorded. Surgeries None recorded. Imaging None recorded. Medication Orders None recorded. Patient TargetsNo targets recorded. Patient Instructions Encounter Date Encounter Id Patient Instructions Last Modified By Organization Details Last Modified Time 11/24/2020 [id number] Inhaler Instructions Before use, you need to [...] after cleaning actually helps it work better. [email or web address] Not available 11/24/2020 20:33:41 Reason for Referral [...] testi ng. Resul t repor sharmin to [facility]. This test has been autho rized by the FDA under an Emerg ency Use Autho rizat ion (EUA) for use by autho rized labor atori es. Test perfo rmed by [facility] or, [facility] at the [facility] of [facility] and Sylvia sunshine, [address] [place] [address] . CLIA ID: [id number] , CAP: [id number]. Medic al Direc tor: Larisa Willams, [...] limit ed to the [facility] [employer] at the [facility] tut which is certi fied [...] Go To The Location Of Their Choice, [id number] 10/20/2020 00:07:30 11/24/19 21 11/25/2020 SARS CoV 2 RNA (COVI D-19) , QL, pile driver operator-P CR, respi rator y speci men covid-19, (RT)-PCR (neg) NEGAT EDISON 2018- novel Coron aviru s (2018nCoV ) not detec sharmin by the qRT-P CR assay . If clini noemí suspi cion for COVID -19 is high, sujit nue to maint ain preca ution s and consi [place] repea t testi ng. Resul t repor sharmin to [facility]. This test has been autho rized by the FDA under an Emerg ency Use Autho rizat ion (EUA) for use by autho rized labor atori es. Test perfo rmed by [facility] [employer] at the [facility] and Sylvia sunshine, [address] [place] [facility] [place] [address] . CLIA ID: [id number] , CAP: [id number] 96. Medic al Direc tor: Larisa Willams, [...] limit ed to the [facility] dex [place] or at the [facility] which is certi fied under the [...] Go To The Location Of Their Choice, [id number] 11/25/2020 22:33:10 11/26/19 22 11/28/20212018 NOVEL CORON [...] the [facility] s websi te: www.[employer] .[facility]/ Covid 19. Test Perfo rmed by: [facility] [employer], [address], [place]. [address] . Labor atory Direc tor: Lilia celaya MD. Not Available [facility] (Centralized Electronic Ordering - All Locations) Patient Can Go To The Location Of Their Choice, [id number] 11/28/2021 23:57:18 Result Notes None recorded. Problems Name Problem SNOMED Code Status Onset Date Resolution Date Notes Provider Name and Address Organization Details Recorded Time Hypertensi ve disorder 76205077 Completed 201910/15/2020 ENRIQUETA CANTU [address] [place], [address], [place] [facility] 0 17:05:04 Anxiety 26057767 Active 2019 ENRIQUETA CANTU [address] [place], [address], [place] [facility] 0 17:05:11 Problem Notes None recorded. Procedures Surgical History Date Name Laterality Status Provider Name and Address Organization Details Recorded Time 9 excision of bunion completed NATHAN NORMAN NP [address], [place], [address], [place] [facility] 11/26/2021 10:49:10 Imaging Results None recorded. Procedure Notes None recorded. Medical Equipment None Reported. Allergies Allergen ID Allergen Name Allergen Category Reaction Reaction Severity Criticality Documentation Date Start Date Code Code System Note Provider Name and Address Organization Details Recorded Time 578711 Product containin g penicilli n (product) medicatio n Not available Not available Not available 10/15/2020 71023 8001 SNOMED ENRIQUETA CANTU [address] [facility] [place], [address], [place] [facility] 0 16:13:50 424053 aspirin medicatio n Not available Not available Not available 10/15/2020 1191 RxNorm ENRIQUETA CANTU [address], [facility] [place], [address], [place] [facility] 0 16:13:55 667830 lactose food,medi cation Not available Not available Not available 10/15/2020 6211 RxNorm ENRIQUETA CANTU [address], [place], [address], [place] [facility] 0 [...] Not Available Not Availa ble Not Available Depo-Wire Straightener a active Not Available Not Available Not [...] /min 110 mm[Hg] 68 mm[Hg] Not Available [facility] 0 16:17:19 Date Recorded Oxygen saturation Oxygen saturation in Arterial blood by Pulse oximetry Heart rate Respiratory rate Body temperature Systolic blood pressure Diastolic blood pressure Provider Name and Address Organization Details Last Updated DateTime 1 96 % 96 % 94 /min 18 /min 98.5 [degF] 116 mm[Hg] 80 mm[Hg] Not Available [facility] 1 20:37:26 Date Recorded Respiratory rate Heart rate Oxygen saturation Oxygen saturation in Arterial blood by Pulse oximetry Body temperature Systolic blood pressure Diastolic blood pressure Provider Name and Address Organization Details Last Updated DateTime 2 18 /min 79 /min 99 % 99 % 99 [degF] 124 mm[Hg] 82 mm[Hg] Not Available [facility] 2 10:56:03 Social History Question Answer Notes LastModified by Organizat ion Details LastModified Time Tobacco Smoking Status Never Smoker ENRIQUETA CANTU [address] [place], [address], [place] [facility] 10/15/2020 16:20:19 Do You [...] available 2019 16:20:44 Medical History Condition Response Diabetes N Coronary Artery Disease N High Cholesterol N Cancer N Pulmonary Embolism N Stroke N Hypertension Y Asthma N COPD N Depression Y Kidney Disease Y Gynecological HistoryNo gynecological history recorded. Obstetrics History GPAL:G 0 P 0 0 0 0 Immunizations Vaccine Type Date Status Note Provider Nam e and Address Organization Details Recorded Time COVID-19, mRNA, LNP-S, PF, 30 mcg/0.3 mL dose 1 completed NATHAN NORMAN NP [address] [place], [address], [place] [facility] 11/26/2021 10:48:18 Influenza, split virus, quadrivalent, preservative 1 completed NATHAN NORMAN NP [address] [place], [address], [place] [facility] 11/26/2021 10:48:34 Past Encounters Encounter ID Performer Location Encounter Start Date Encounter Closed Date Diagnosis/Indication Diagnosis SNOMED-CT Code Diagnosis ICD10 Code Diagnosis Note [id number] ENRIQUETA CANTU [facility] [address] [place] [address] 10/15/2020 16:09:55 10/15/2020 18:33:00 Acute upper respiratory infection 04817042 J06.9 [id number] MACK MONTILLA NP [facility] [address] [place] [address] 11/24/2020 20:25:31 11/26/2020 19:28:20 Exposure to communicable disease 956916175 Z20.822 Otalgia of left ear 1089 902955 927515 H92.02 Headache 04733327 R51.9 [id number] NATHAN NORMAN, [employer] [facility] [address] [place] [address] 11/26/2021 10:15:06 11/27/2021 23:44:55 Viral upper respiratory tract infection 957020209 J06.9 Health Concerns Section Related Observation LastModified by Organization Detai ls LastModified Time None Recorded Concern Status LastModified by Organization Details LastModified Time None Recorded Advance Directives Directive Y: Payers Encounter Date Sequence Insurance Name Policy Number Policy Michaels Covered Member ID Michaels Member ID Guarantor Name 10/15/2020 1 [facility] - DOS PRIOR TO 2023 - DUAL ELIGIBLE (MEDICARE REPLACEMENT/ADV ANTAGE - HMO) Larisa Matus [id number] [facility] [place] 11/24/2020 1 [facility] - DOS PRIOR TO 2023 - DUAL ELIGIBLE (MEDICARE REPLACEMENT/ADV ANTAGE - HMO) Larisa Matusow [id number] Larisa [place]atusow 11/26/2021 1 [facility] - DOS PRIOR TO 2023 - DUAL ELIGIBLE (MEDICARE REPLACEMENT/ADV ANTAGE - HMO) Larisa Matusow [id number] Larisa [place]ow Notes Date Note Type Note Provider Name and Address Organization Details Recorded Time 10/15/2020 text/html 50-year-old femkatia mata with past medical history significant for depression, anxiety, solitary kidney, migraines, seasonal allergies, GERD, overactive bladder, new to [facility], who presents for complaints of low grade fever, headache, chills, nasal congestion and rhinorrhea, productive cough and sinus pain for about 1 week. She had a televisit with her primary care and was prescribed doxycycline, she has 1 dose left and states that she is feeling much better this week. However she would like a COVID test. She has been using qefs-wkf-tqzvrrs Flonase for sinus congestion as well. She has no known positive exposures or sick contacts. Good PO intake, no appetite change. ENRIQUETA CANTU [address], [place], [address], [place] [facility] 10/15/2020 17:05:22 11/24/2020 text/html This is a 50-year-old female that is known to [facility] but new to this provider. She has a medical history significant for migraines, seasonal allergies, depression and has a solitary kidney. She contracts [facility] because she has been having some generalized [...] chills. MACK MONTILLA NP [address], [place], [address], [place] [facility] 11/25/2020 10:43:14 11/26/2021 text/html Onset one week Location upper respiratory Duration intermittent Characteristics mild Aggravates/Allevia shawn no known factors NATHAN NORMAN NP [address], [place], [address], [place] [facility] 11/26/2021 14:51:23 OBGyn Episode No OBEpisode recorded.
--- OUTSIDE RECORDS SUMMARY | 2025-01-28 15:24 | XMS_ITS | Clinical Summary ---
Author Organization [facility] Address [address] [facility] [address] [place] [address] Phone Care Team Providers Care Volunteer Patient Representative Name Role Phone Eri Smyth NP Primary Care Provider Allergies Active Allergy Reactions Criticality Noted Date [...] 03/16/2022 Acute nontraumatic kidney injury 06/17/2021 Chronic primary bladder pain syndrome 06/17/2021 Chronic kidney disease stage 2 06/17/2021 [...] PM EST) Hemoglobin A1C 5.1 (4-6) % [place] [id number] Comment: HEMOGLOBIN A1C(%) ?? GLUCOSE CONTROL INDEX ?<6% ? EXCELLENT ?6-7% ?VERY GOOD ?7-8% ?GOOD ?8-10% ? FAIR ?>10% ?POOR Hemoglobin (Hb) A1c testing is performed by [employer] [place]-quant immunoassay. Any cause of shortened erythrocyte survival will reduce exposure of erythrocytes to glucose with a consequent decrease in Hb A1c (%). Testing performed or reported by ~[facility], ~[facility], ~[address] [place] [address]~ Adriana Weathers MD, City Designer~ 10/14/2019 2:15 PM EST us Obed Polanco MD LAB BLOOD ORDERABLES Final Re sult [facility] 3 from Last 3 Months or Most Recently Relevant to Health Maintenance Insurance [facility] ([id number]) [place] [place] [address] ([id number]) Care Teams Volunteer Patient Representative Relationship Specialty Start Date End Date Eri Smyth NP [address] [place] [address] PCP - General 11/16/20
== END 2025-01-28 13:35 | disposition home or self-care (01) ==
LOC: HO.HGI 12:39
PROVIDERS: Visit Provider Nurse Practitioner
DX: D12.6 Benign neoplasm of colon, unspecified (principal); K21.9 Gastro-esophageal reflux disease without esophagitis; R79.82 Elevated C-reactive protein (CRP); K58.2 Mixed irritable bowel syndrome
CPT/HCPCS: 99214

== ENCOUNTER → 2025-01-28 12:38 | Outpatient (BNVA) | payer OTHER, SELFPAY | PROVIDERS: Visit Provider Nurse Practitioner | DX: K21.9 Gastro-esophageal reflux disease without esophagitis (principal); K52.9 Noninfective gastroenteritis and colitis, unspecified; K58.2 Mixed irritable bowel syndrome; R10.9 Unspecified abdominal pain; R15.9 Full incontinence of feces; D12.6 Benign neoplasm of colon, unspecified; R79.82 Elevated C-reactive protein (CRP); R14.0 Abdominal distension (gaseous) | CPT/HCPCS: 99212 ==

== ENCOUNTER 2025-07-22 12:47 | Outpatient (AMB) | payer OTHER, SELFPAY ==
--- NOTE | 2025-07-22 12:55 | MHC.OFFVIS ---
Vital Signs 07/22/25 12:57 Height 5 ft 6 in Weight 251 lb BMI 40.5 BP 126/69 Blood Pressure Location Lt brachial Position Sitting Pulse 75 Intake Visit Reasons: IBS-M, GERD, multiple polyposis Intake Note: Larisa presents to in office follow up of IBS-M and GERD. CC: Patient reports that she hasn't take the Metamucil because she is afraid. Per patient her brother has IBS and takes Sucralfate and she would like to try it. Gasoline Service Attendant Required: No Accompanied by: Self / Same As Patient Allergies aspirin (ASPIRIN) Allergy (Intermediate, Verified 07/22/25 13:15) VOMITING cephalexin (From Keflex) Adverse Reaction (Intermediate, Verified 07/22/25 13:15) Shakiness Penicillins (PENICILLINS) Adverse Reaction (Intermediate, Verified 07/22/25 13:15) SHAKINESS lactose (LACTOSE) Adverse Reaction (Unknown, Verified 07/22/25 13:15) SEVERE DIARRHEA HPI HPI IBS-M, GERD, multiple polyposis: Details: Assessment & Plan (1) Tubular adenoma of colon: Comment: 02/2023 scope= multiple large polyps repeat in 6 months Code(s): D12.6 - Benign neoplasm of colon, unspecified Category: Medical (2) GERD (gastroesophageal reflux disease): Code(s): K21.9 - Gastro-esophageal reflux disease without esophagitis Category: Medical (3) Elevated C-reactive protein (CRP): Code(s): R79.82 - Elevated C-reactive protein (CRP) Category: Medical (4) Irritable bowel syndrome with both constipation and diarrhea: Code(s): K58.2 - Mixed irritable bowel syndrome Category: Medical Plan (Her last colonoscopy was 08/2023 and at that time she still had quite large polyps removed which necessitated another 1 year recall. At that time she had 28 polyps removed over the [place] 6 months.) She broke her ankle stepping wrong on stairs and had a tri maleolar fracture! She had surgery and had to go to rehab. She has been falling recently r/t her neuropathy which effects her coordination - she also recently hurt her ribs! She struggles with her bowels going back and forth between bouts of severe diarrhea and bouts of constipation. Right now she is in a constipation phase. I was somewhat concerned given the number of polyps and the elevated CRP that she may have IBD and I am not sure why the Prometheus test was not run, however she has never had any biopsy evidence of IBD so I think we will treat this as IBS-M. We discussed the importance of fiber and how you need to take it for both the diarrheal and the constipation phase and how it works. She will start on Metamucil and I think her insurance may cover the capsule so I will send this to the pharmacy. She continues on her pantoprazole and simethicone. She did not find the bentyl helpful for her diarrhea and she only has cramping during the diarrheal phase. ROV 6 mos. Medications: New psyllium husk (Metamucil) 0.8 grams (2 x 0.4 gram) PO BID 120 caps 11RF K58.2 - Mixed irritable bowel syndrome Refilled loperamide 2 mg PO QID PRN 112 caps 0RF for diarrhea K58.2 - Mixed irritable bowel syndrome pantoprazole 40 mg PO BID 56 tabs 6RF K21.9 - Gastro-esophageal reflux disease without esophagitis simethicone (Gas Relief Ultra Strength) 180 mg PO QID PRN 56 caps 11RF for abdominal pain R14.0 - Abdominal distension (gaseous) Discontinued dicyclomine Discontinued Reason: Doctor's Order 20 mg PO QID 112 tabs 6RF K58.2 - Mixed irritable bowel syndrome bisacodyl (Dulcolax (bisacodyl)) Discontinued Reason: Patient Completed Course 10 mg (2 x 5 mg) PO BEDTIME 2 days 4 tabs 0RF TODAYS VISIT [facility] Medical History (Updated 07/22/25 @ 13:06 by COMPA Huntley) Colon cancer screening Anxiety and depression PTSD (post-traumatic stress disorder) Migraine Hx of degenerative disc disease GASTON on CPAP IBS (irritable bowel syndrome) Recurrent urinary tract infection Interstitial cystitis GERD (gastroesophageal reflux disease) Urgency incontinence UTI (urinary tract infection) Surgical History (Reviewed 01/28/25 @ 13:00 by Dario Grijalva [facility]) History of cystoscopy History of surgery History of esophagogastroduodenoscopy (EGD) Hx of colonoscopy Family History Mother High cholesterol Sister High cholesterol Paternal Aunt Diabetes Paternal Grandmother Bone cancer Paternal Grandfather Cancer Family/Other FH: juvenile onset diabetes mellitus Social History Alcohol intake: current Alcohol intake frequency: does not drink Patient Tobacco Use Status: Never used Tobacco Review of Systems Const Denies fatigue, Denies fever(s), Denies night sweats, Denies poor appetite and Denies weight loss Eyes Details: glasses Reports requires corrective lenses ENT Reports Normal hearing present, Denies dental pain, Denies dysphagia, Denies hearing loss, Denies mouth pain, Denies odynophagia, Denies throat swelling, Denies tongue swelling and Reports other (Dentition adequate) Card Reports no additional complaints Resp Reports no additional complaints GI Details: Denies abdominal pain, Denies melena, Reports bloating, Denies hematochezia, Reports constipation, Reports GI cramping, Denies dysphagia, Denies excessive flatus, Denies early satiety, Reports heartburn, Reports diarrhea, Denies nausea, Denies odynophagia, Denies vomiting and Denies hematemesis Skin/Breast Denies pruritus, Denies lesions, Denies rash and Denies jaundice Neuro Reports Normal hearing present and Denies Abnormal speech present Psych Reports anxiety, Reports depression, Denies hopelessness, Reports irritability, Denies homicidal ideation and Denies suicidal ideation Endo Denies fatigue Aller/Immun Denies throat swelling and Denies tongue swelling Physical Exam Vital Signs: Last Vital Signs Pulse 75 07/22/25 12:57 BP 126/69 07/22/25 12:57 BMI result Body Mass Index 40.5 Const General: cooperative, no acute distress, well developed and well groomed Nutritional Appearance: well nourished and obese Orientation/consciousness: oriented to person, oriented to place and oriented to time Limitations: behavioral limitations and No language barrier HEENT Head: Yes normocephalic and Yes atraumatic Eyes General: appearance normal, both eyes and all related structures Pupils: Equal, round and reactive pupils present Neck Neck: Yes normal visual inspection and Yes no lymphadenopathy Thyroid: Thyroid normal Resp Effort & Inspection: normal respiratory effort and able to speak in complete sentences Auscultation: clear to auscultation bilaterally Cardio Rate: regular rate Rhythm: regular rhythm Heart sounds: Normal, physiologic split S2 sound present Peripheral pulses: radial pulses present and posterior tibial pulses present GI Inspection: No distended, Yes Abdominal panniculus present and Yes obesity Palpation (GI): Soft to palpation, nontender, no guarding, not rigid and No hepatosplenomegaly present Percussion: Yes normal to percussion Auscultation: normal bowel sounds Rectal Exam - Female: deferred Skin General skin exam: no rashes or lesions noted, turgor normal, skin not dry, no jaundice, No spider nevi and no striae Rashes: no rashes Nails: normal Neuro General: oriented to person, oriented to place and oriented to time Cranial nerves: Yes Equal, round and reactive pupils present and Yes Normal hearing present Speech: No Abnormal speech present Extrem General: Yes normal to inspection, No clubbing, No cyanosis and No edema Psych Appearance: grossly normal and well kempt Mental Status: mental status grossly normal Speech and movement: Pressured speech present Affect: Labile affect present, Anxious affect present and Irritable affect present Attitude: cooperative Thought process: not confabulating and Impoverished thought process present Thought content: Normal thought content present Insight: Limited insight present (Psych) Judgement: Limited judgement present (Psych) Assessment & Plan Assessment & Plan (1) GERD (gastroesophageal reflux disease): Code(s): K21.9 - Gastro-esophageal reflux disease without esophagitis Category: Medical (2) Irritable bowel syndrome with both constipation and diarrhea: Code(s): K58.2 - Mixed irritable bowel syndrome Category: Medical (3) Tubular adenoma of colon: Comment: 12/2024=11 polyps repeat 1 year; 02/2023 scope= multiple large polyps repeat in 6 months Code(s): D12.6 - Benign neoplasm of colon, unspecified Category: Medical Plan - The patient is a 55-year-old female presenting with management of irritable bowel syndrome with alternating diarrhea and constipation. She also has GERD. - She experiences chronic symptoms of gastrointestinal distress characterized by fluctuating diarrhea and constipation. - Diarrhea is described as urgent and sometimes leading to incontinence, influencing her decision to avoid leaving home. - Constipation is reported to cause bloating and discomfort. - Previous attempts to manage symptoms include the use of dietary fiber, which resulted in abdominal pain, making her wary of attempting this intervention again. - The patient notes a lactose intolerance, managing it through lactose-free dietary options. - Dietary triggers such as chicken have been inconsistent in producing symptoms, despite no allergy findings. - Regular surveillance for colonic polyps due to personal and family medical history, with previous colonoscopy identifying multiple polyps. Larisa is very emotional and labile during this meeting as she is quite frustrated that we can not seem to fix her. Apparently in his bothers so much she speaks to her psychiatric counselor about it. I let her know that mixed irritable bowel syndrome is frequently difficult to treat unless we can identify whether the constipation of the diarrhea on more dominant. Unfortunately Larisa really does not have good insight about this nor does she have good insight about what might trigger 1 phase with the other. She says that fiber caused her pain in the past but it is really the mainstay treatment for mixed irritable bowel syndrome and I encouraged her to consider trying it again. I also encouraged her to keep a journal so she can see which phase is more dominant and for her to keep a food journal as well so we might be able to identify food triggers. She is agreeable to the idea of journaling. (RAST food allergy panel was negative, tissue transglutaminase was negative, she has not elevated CRP but declines to do stool samples for fecal calprotectin however she had a colonoscopy 12/2024 and there were no signs of inflammatory bowel disease at that time. She did have polyps. Of note, she also has interstitial cystitis and since IBD can be elusive to diagnose will have to keep an open mind about this.) Return office visit in 2 months Coding Level of Care Code Est Pt Level 3 (74117) Diagnoses GERD (gastroesophageal reflux disease) K21.9 Irritable bowel syndrome with both constipation and diarrhea K58.2 Tubular adenoma of colon D12.6
[2025-07-22 12:57] VITALS: BP 126/69; PULSE 75; BMI 40.5
--- OUTSIDE RECORDS SUMMARY | 2025-07-22 16:43 | XMS_ITS ---
Author Organization [facility] Care Team Providers Care Business Practices Officer Name Role Phone Gallo Khan Unavailable Unavailable Jeanna Restrepo Unavailable Unavailable Allergies and adverse reactions Code CodeSystem Substance Reaction Severity StartDate Concern Status 7984 RXNORM Penicillin Unknown Unknown active 305920173 SNOMED CT Lactose Unknown 04/05/2024 active 1191 RXNORM Aspirin Unknown Unknown active Care Team Name Role Address Phone Organization Dates Jeanna Restrepo PCP [address] [facility] [address], [place], [address], [facility] (Office): : [facility] 06/25/2024 - 07/09/2024 Gallo Khan [address] [facility] [address], [place], [address], [place] (Office): [facility] 06/25/2024 - 07/09/2024 Goals Section Goals Description Status Target Date Assistance will be provided for all deficits in ADL's during stay. Active 10/01/2024 I prefer to be addressed as Larisa. Active 10/01/2024 I will be compliant with lab s & diagnostics if ordered by my doctor through the review date. Active 10/01/2024 I will be compliant with the medication regimen & therapies prescribed by my doctor. I will be free of any discomfort or adverse side effects to therapies through the review date. Active 10/01/2024 I will be compliant with the non medication therapies, medication regimen & therapies prescribed by my doctor. I will be free of any discomfort or adverse side effects to therapies through the review date. Active 10/01/2024 I will be compliant with gaby caceres skin assessments though review date. Active 10/01/2024 I will be free of falls through the review date. Active 10/01/2024 I will be free of major decl ine in ADL status through the review date. Active 10/01/2024 I will comply with medicatio n management, treatment management and Vitals through review date. Active 10/01/2024 I will express satisfaction with the type of activities I am involved in when asked through the review date. Active 2023 I will maintain optimal stat us and quality of life within limitations imposed by my disorder(s) through review date. Active 10/01/2024 I will verbalize adequate re lief of pain or ability to cope with incompletely relieved pain through the review date. Active Resident/POA/Guardian will be notified of all ch anges to care. Active 10/01/2024 Immunizations Immunization Status Vaccine Details Vaccine Code CodeSystem Chaitanya e Notes PCV20 completed Pneumococcal conjugate vaccine 20-valent (PCV20), polysaccharide RMD047 conjugate, adjuvant, preservative free 216 CVX created date: 07/03/2024 consent date: 07/03/2024 administered date: 02/02/2017 Mental Status Section Date Assessment Total Score Description 07/09/2024 BIMS 15 cognitively int act CAM 0 No delirium ind icated PHQ-9 00 07/02/2024 BIMS 15 cognitively int act CAM 0 No delirium ind icated PHQ-9 00 Plan of Treatment Section Interventions Intervention Code Code System Display Name Proposed D ate Problems Problem # Description Date of onset Resolved Date Code CodeSystem Concern Status 1 ENCOUNTER FOR OTHER ORTHOPEDIC AFTERCARE [address] active 2 ANEMIA, UNSPECIFIED [address] active 3 BENIGN NEOPLASM OF PITUITARY GLAND [address] active 4 CHRONIC KIDNEY DISEASE, STAGE 3B [address] active 5 DIFFICULTY IN WALKIN G, NOT ELSEWHERE CLASSIFIED [address] active 6 DISPLACED TRIMALLEOL AR FRACTURE OF LEFT LOWER LEG, SUBSEQUENT ENCOUNTER FOR CLOSED FRACTURE WITH ROUTINE HEALING [address] active 7 FIBROMYALGIA [address] active 8 GASTRO-ESOPHAGEAL REFLUX DISEASE WITHOUT ESOPHAGITIS [address] active 9 HYPERPROLACTINEMIA [address] active 10 INTERSTITIAL CYSTITI S (CHRONIC) WITHOUT HEMATURIA [address] active 11 IRRITABLE BOWEL SYNDROME, UNSPECIFIED [address] active 12 MAJOR DEPRESSIVE DISORDER, SINGLE EPISODE, MODERATE [address] active 13 MIGRAINE, UNSPECIFIE D, NOT INTRACTABLE, WITHOUT STATUS MIGRAINOSUS [address] active 14 MUSCLE WEAKNESS (GENERALIZED) [address] active 15 RETENTION OF URINE, UNSPECIFIED [address] active 16 SLEEP APNEA, UNSPECIFIED [address] active 17 UNSPECIFIED KIDNEY FAILURE [address] active Reason for Referral No Reasons for Referral Entered Social History Social History Observation Description Start Date End Date Code Code System Current Smoking Status Tobacco smoking consumption unknown 235205282 SNOMED CT Sex Assigned At Female 1970 00684-9 [facility] Gender Identity Sexual Orientation Vital Signs Code Code System Vitals Name Values and Units Timing Information 9279-1 [facility] Respiratory Rate Value=18.0 Units=/m in 07/09/2024 8462-4 [facility] Blood Pressure-Diastolic Value=75 Un its=mmHg 07/09/2024 8480-6 [facility] Blood Pressure-Systolic Pkskw=902 Un its=mmHg 07/09/2024 8310-5 [facility] Body Temperature Value=97.6 Units= F 07/09/2024 8867-4 [facility] Heart rate Value=71.0 Units=/min 01/2024 62127-2 [facility] O2 % BldC Oximetry Value=97.0 Units= % 07/09/2024 07293-0 [facility] Pain Level Value=0.0 07/09/2024 30142-0 [facility] Weight Qgspw=953.8 Units=Lbs 11/2023 8302-2 [facility] Height Value=66.0 Units=Inches 06/27/2024
--- OUTSIDE RECORDS SUMMARY | 2025-07-22 16:44 | XMS_ITS | Encounter Summary ---
Author Organization [facility] Address [address] [facility] [address] [place] [address] Phone Care Team Providers Care Spinneret Person Name Role Phone Renea Qureshi MD Primary Care Provider [phone] Reason for Visit * Reason Comments Med Refill Encounter Details Date Type Department Care Team (Late st Contact Info) Description 02/25/2025 Refill [facility] [address] [facility] [address] [place] [address] Aurora Bustos ARNP [address] [address] Hypertension; Type 2 diabetes mellitus with diabetic chronic kidney disease (HCC) Social History Tobacco Use Types Packs/Day Years Used Date Smoking Tobacco: Never Smokeless Tobacco: Never Alcohol Use Standard Drinks/Week Comments No 0 (1 standard drink = 0.6 oz pur e alcohol) Comments Unknown Sex and Gender Information Value Date Recorded Sex Assigned at Not on file Legal Sex Female 4:48 PM EST Gender Identity Not on file Sexual Orientation Not on file documented as of this encounter Plan of Treatment Upcoming Encounters Date Type Department Care Team (Late st Contact Info) Description 12/01/2025 1:30 PM EST Office Visit [facility] P.CBob [address] [address] Aurora Bustos ARNP [address] [address] documented as of this encounter Visit Diagnoses Diagnosis Hypertension Type 2 diabetes mellitus with diabetic chronic kidney disease (HCC) documented in this encounter Care Teams Spinneret Person Relationship Specialty Start Date End Date Renea Qureshi MD [address] [place] [id number] PCP - General Medical Equipment Technician 06/04/25 documented as of this encounter
--- OUTSIDE RECORDS SUMMARY | 2025-07-22 16:44 | XMS_ITS | Clinical Summary ---
Author Organization [facility] Address [address] [address] Phone Care Team Providers Care Radio Tester Name Role Phone Renea Qureshi MD Primary Care Provider [phone] Allergies Active Allergy Reactions Criticality Noted Date [...] MG capsule zonisamide 100 mg capsule Active losartan (COZAAR) 25 MG tabletIndicatio ns:Hypertension ,Type 2 diabetes mellitus with diabetic chronic kidney disease (HCC) Take 1 tablet (25 mg total) by mouth 1 (one) time each day 30 tablet 5 5 12/06/19 26 Active Active Problems Problem Noted Date Diagnosed Date Stage 3a chronic kidney disease 06/04/2025 Hypertension 06/04/2025 Anemia 03/16/2022 Blood in urine 03/16/2022 Hormone [...] unspecified side 03/16/2022 11/28/2022 Anxiety 10/15/2020 11/28/2022 Encounters Date Type Department Care Team Description 06/09/2025 Orders Only [facility] [address] [place] [address] Aurora Bustos ARNP Hypertension; Type 2 diabetes mellitus with diabetic chronic kidney disease (HCC) 06/09/2025 Refill [facility] [address] [place] [address] Aurora Bustos ARNP Hypertension; Type 2 diabetes mellitus with diabetic chronic kidney disease (HCC) 06/07/2025 Orders Only [facility] [address] [place] [phone] Aurora Bustos ARNP 06/04/2025 3:00 PM EDT Office Visit [facility] [address] [place] [phone] Aurora Bustos ARNP Stage 3a chronic kidney disease (HCC) (Primary Dx); Hypertension 05/21/2025 Orders Only [facility] [address] [phone] Aurora Bustos ARNP Hypertension; Type 2 diabetes mellitus with diabetic chronic kidney disease (HCC) 05/21/2025 Refill [facility] [address] [place] [phone] Susana Smith MA Hypertension; Type 2 diabetes mellitus with diabetic chronic kidney disease (HCC) 05/13/2025 Refill [facility] [address] [facility] [address] [place] [phone] Aurora Bustos ARNP Hypertension; Type 2 diabetes mellitus with diabetic chronic kidney disease (HCC) from Last 3 Months Immunizations Immunization Administration Dates Next Due Influenza Whole 06/26/2012,07/04/2011 Influenza, Quadrivalent, With Preservative 07/13 Pfizer SARS-COV-2 07/13/2021,02/08/2021,01/18/20 21 Pneumococcal Polysaccharide 02/02/2017 Td, Unspecified 08/06/2006 Tdap [...] Sign Reading Time Taken Comments Blood Pressure 120/82 06/04/2025 3:15 PM EDT Pulse 86 06/04/2025 3:15 PM EDT Temperature - - Respiratory Rate - - Oxygen Saturation 98% 11/13/2023 8:55 AM EST Inhaled Oxygen Concentration - - Weight 111 kg (244 lb 6.4 oz) 06/04/2025 3:15 PM EDT Height 167.6 cm (5' 6 ) 03/21/2022 1:07 PM EDT Body Mass Index 39.45 03/21/2022 1:07 PM EDT Plan of Treatment Upcoming Encounters Date Type Department Care Team (Late st Contact Info) Description 12/01/2025 1:30 PM EST Office Visit [facility] [address] [phone] Aurora Bustos ARNP [address] [phone] Health Maintenance Due Date Last Done Comments Breast Cancer Screening 1971 Hepatitis B Vaccine (1 of 3 - 19+ 3-dose series) 1990 Pneumococcal Vaccine: 50+ Ye ars (2 of 2 - PCV) 02/02/2018 02/02/2017 Colorectal Cancer Screening: Annual FOBT 2020 Colorectal Cancer Screening: Colonoscopy 2020 Colorectal Cancer Screening: Sigmoidoscopy 2020 Diabetes: Hemoglobin A1C 01/10/2022 10/14/2019 Diabetes: Ophthalmology Exam 01/10/2022 Diabetes: Pedal Pulse Checked 01/10/2022 Diabetes: Sensory Foot Exam 01/10/2022 Diabetes: Visual Foot Exam 01/10/2022 Influenza Vaccine (#1) 2025 , 06/26/2012, 07/04/2011 Pneumococcal Vaccine: Peds ( 0 to 5 Years) and At-Risk Patients (6 to 49 Years) Discontinued 02/02/2017 Procedures Procedure Name Priority Date/Time Associated Diagnosis Comments PTH, INTACT Routine 06/07/2025 12:49 PM EDT URINE ALBUMIN / CREATININE RATIO Routine 06/07/2025 12:49 PM EDT PROTEIN / CREATININE RATIO, URINE Routine 06/07/2025 12:49 PM EDT CBC Routine 06/07/2025 12:49 PM EDT RENAL FUNCTION PANEL Routine 06/07/2025 12:49 PM EDT HEMOGLOBIN A1C Routine 10/14/2019 2:15 PM EST from Last 3 Months or Most Recently Relevant to Health Maintenance Results * Protein, Total, Random Urine w/Creatinine (Protein/Creat Ratio) (06/07/2025 12:49 PM EDT) Creatinine, Ur 330.0 Not Estab. mg/dL [facility] Protein, Ur 55.3 Not Estab. mg/dL [facility] Urine Protein/Creatin ine Ratio 168 0 - 200 mg/g creat [facility] 06/07/2025 12:4 9 PM EDT 06/07/2025 us Aurora MARIE LAB URINE ORDERABLES Final Result [facility] [address] [place] [address] * Urine Albumin / Creatinine Ratio (06/07/2025 12:49 PM EDT) Albumin, Urine 18.5 Not Estab. ug/mL [facility] Albumin/Creatin ine Ratio 6 0 - 29 mg/g creat [facility] Comment: Normal: 0 - 29 Moderately increased: 30 - 300 Severely increased: >300 06/07/2025 12:4 9 PM EDT 06/07/2025 Aurora GHOSHP LAB URINE ORDERABLES Final Result [facility] [address] [place] [address] * (ABNORMAL) CBC (06/07/2025 12:49 PM EDT) WBC 13.3(H) 3.4 - 10.8 x10E3/uL [facility] RBC 5.34(H) 3.77 - 5.28 x10E6/uL [facility] Hemoglobin 15.4 11.1 - 15.9 g/dL [facility] Hematocrit 47.4(H) 34.0 - 46.6 % [facility] MCV 89 79 - 97 fL [facility] MCH 28.8 26.6 - 33.0 pg [facility] MCHC 32.5 31.5 - 35.7 g/dL [facility] RDW 13.6 11.7 - 15.4 % [facility] Platelets 281 150 - 450 x10E3/uL [facility] 06/07/2025 12:4 9 PM EDT 06/07/2025 [facility] LAB BLOOD ORDERABLES Final Result [facility] [address] [place] [address] * PTH, Intact (06/07/2025 12:49 PM EDT) Pathologist [facility] PTH 45 15 - 65 pg/mL [facility] 06/07/2025 12:4 9 PM EDT 06/07/2025 [facility] LAB BLOOD ORDERABLES Final Result Performing Organization Address City/[facility]/ZIP Co de Phone Number [facility] [address] [place] [address] * (ABNORMAL) Renal Function Panel (06/07/2025 12:49 PM EDT) Pathologist [facility] Glucose 59(L) 70 - 99 mg/dL [facility] BUN 11 6 - 24 mg/dL [facility] Creatinine 1.61(H) 0.57 - 1.00 mg/dL [facility] eGFR CKD-EPI CR 2020 38(L) >59 mL/min/1.7 3 [facility] BUN/Creatinine Ratio 7(L) 9 - 23 [facility] Sodium 139 134 - 144 mmol/L [facility] Potassium 4.2 3.5 - 5.2 mmol/L [facility] Chloride 104 96 - 106 mmol/L [facility] Bicarbonate (CO2) 18(L) 20 - 29 mmol/L [facility] Calcium 9.5 8.7 - 10.2 mg/dL [facility] Phosphorus 4.0 3.0 - 4.3 mg/dL [facility] Albumin 4.3 3.8 - 4.9 g/dL [facility] 06/07/2025 12:4 9 PM EDT 06/07/2025 Aurora Bustos FRANK LAB BLOOD ORDERABLES Final Result [facility] [address] [place] [address] * Hemoglobin A1c (10/14/2019 2:15 PM EST) Hemoglobin A1C 5.1 (4-6) % [facility] 3 Comment: HEMOGLOBIN A1C(%) GLUCOSE CONTROL INDEX <6% EXCELLENT 6-7% VERY GOOD 7-8% GOOD 8-10% FAIR >10% POOR Hemoglobin (Hb) A1c testing is performed by [place]-quant immunoassay. Any cause of shortened erythrocyte survival will reduce exposure of erythrocytes to glucose with a consequent decrease in Hb A1c (%). Testing performed or reported by ~[facility], ~a Service of [facility], ~[address] [place] [id number]~ Adriana Weathers MD, Urgent Care~ 10/14/2019 2:15 PM EST Obed Polanco MD LAB BLOOD ORDERABLES Final Re sult [facility] 3 from Last 3 Months or Most Recently Relevant to Health Maintenance Insurance [facility] ([id number]) ([id number]) Care Teams Radio Tester Relationship Specialty Start Date End Date Renea Qureshi MD [address] [place] [id number] PCP - General Dramatic Teacher 06/04/25
== END 2025-07-22 13:42 | disposition home or self-care (01) ==
LOC: HO.HGI 12:48
PROVIDERS: Visit Provider Nurse Practitioner
DX: K21.9 Gastro-esophageal reflux disease without esophagitis (principal); K58.2 Mixed irritable bowel syndrome; D12.6 Benign neoplasm of colon, unspecified
CPT/HCPCS: 99213

== ENCOUNTER → 2025-07-22 12:47 | Outpatient (BNVA) | payer OTHER, SELFPAY | PROVIDERS: Visit Provider Nurse Practitioner | DX: K21.9 Gastro-esophageal reflux disease without esophagitis (principal); K58.2 Mixed irritable bowel syndrome; D12.6 Benign neoplasm of colon, unspecified | CPT/HCPCS: 99212 ==